=== PATIENT | female | born 1935 | race Caucasian/White ===

== ENCOUNTER 2024-12-08 11:04 | Inpatient (IN) | payer MEDICARE, OTHER, SELFPAY ==
[2024-12-08] VITALS (8 sets, daily range): BP systolic 133–178; BP diastolic 70–108; BMI 34.6
[2024-12-08 06:17] LABS: Glucose - Point of Care 93 mg/dl (70-99)
--- NOTE | 2024-12-08 06:17 | ED.CVA ---
History of Present Illness
General
Chief Complaint: CVA/TIA Symptoms
Source: patient and ambulance crew
Exam Limitations: non verbal-adult and altered mental status
Time Seen by Provider: 12/08/24 06:11
Nursing documentation reviewed up to this point in time: agreed with
Onset of Stroke Symptoms
Onset of symptoms known: Yes
Date of onset of symptoms: 12/08/24
Time of onset of symptoms: 05:15
Time pt last seen normal is known: No
History of Present Illness
History of Present Illness:
89-year-old female via EMS wake up around 515 left-sided weakness staff at her facility was called EMS was called patient developed aphasia prehospital stroke alert was called, my evaluation looks like she has expressive aphasia left-sided weakness
interestingly she is hypotensive by EMS report no blood thinners
8 AM further history from patient has a chronic neurologic condition chronic muscle weakness uses a scooter and a walker, he states she looks more tired than normal, he woke her up this morning could not move her left leg
Review of Systems
Review of Systems
Other source history: ambulance crew
All Other Systems: Not applicable
Neurological: Reports weakness
Phy Exam
Physical Exam
Physical Exam:
Physical Exam
General: ill appearing
Neck: no tongue bite
Heart: s1/s2 regular rate and rhythm, no murmur. equal radial pulses.
Lungs: no acute respiratory distress.
Abdomen: soft
Neuro: right gaze preference, left arm/leg weakness, aphasia
Skin: no rash
Psychiatric:unable to access
Extremities: no edema.
Course
Orders/Labs/Results
Orders:
Orders
12/08/24 06:11
Electrocardiogram (*1) Stat
Reason for Study: Other
Other Reason for Exam: neuro symptoms
CT HEAD STROKE ALERT W/o Cont Urgent
Comment:
Reason For Exam: cva
Bedside Glucose- Treatment ONCE
Cardiac Monitoring- Treatment ONCE
EKG- Treatment ONCE
12/08/24 06:12
CT Brain Perfusion Urgent
Comment:
Reason For Exam: cva
12/08/24 06:17
Complete Blood Count/With Diff Urgent
Comprehensive Metabolic Panel Urgent
PTT Urgent
Prothrombin Time Urgent
12/08/24 08:07
Straight cath- Treatment ONCE
CR Chest Portable - 1 View Urgent
Comment:
Reason For Exam: wealmness
Reason Study Needs to be Portable: Patient Unstable
12/08/24 08:08
CT HEAD/NECK ANG STROKE ALERT Urgent
Comment:
Reason For Exam: wekanss
NEUROLOGY CONSULT Urgent
Consulting Provider: Millie Arce
Was physician already notified: Yes
12/08/24 08:35
Urinalysis Reflex To Culture Urgent
Date Specimen was Collected: 12/08/24
Time Specimen was Collected: 08:08
Abnormal Lab Results
12/08/24
06:17
RBC 3.82 L 10^6/uL
(4.20-5.40)
Hgb 11.5 L g/dL
(12.0-16.0)
Hct 35.3 L %
(37.0-47.0)
MCHC 32.6 L g/dL
(33.0-37.0)
BUN 45 H mg/dl
(7-17)
Glucose 104 H mg/dl
(70-99)
12/08/24 06:17
12/08/24 06:17
Vital Signs
Initial and Last Documented VS:
Initial Vital Signs
Temp
98.5 F
12/08/24 06:11
Last Documented Vital Signs
Temp Pulse Resp BP Pulse Ox
98.5 F 89 16 150/70 93
12/08/24 06:11 12/08/24 08:07 12/08/24 08:07 12/08/24 08:07 12/08/24 08:07
MDM/Problems Addressed
Differential Diagnosis Includes:
cva ich seizrue with todds mass
MDM/Problems Addressed:
weakness
*Radiology
Radiology exam reviewed: preliminary read by ED provider
*Pulse Oximetry
Patient hypoxic: no
*EKG
Interpreted by ED Provider?: Yes
Interpretation: normal
Comparison EKG: no comparison EKG present
Heart Rate: 78
Rate: normal
Ischemia: no ischemia
*Audit Reviewer Interpretation
Rate: normal
Interpretation: normal
Heart Rate: 78
Rhythm: sinus
*Critical Care Note
Total Time (30-74mins, 75-104mins- exclusive of procedures): 30
Update Note
Update Note:
650a--ct report noted, Ct P pending
8:30 AM, reviewed with neurology they did recommend CT angio, have asked nurse to check straight cath UA,
ED Attending Note
-
Portions of this chart may have been created with voice recognition software.� Occasional wrong word or��sound alike� substitutions may have occurred due to the inherent limitations of voice recognition software.
Discharge Plan
Departure
Patient Disposition: Home (Routine Discharge)
Date of Disposition: 12/08/24
Time of Disposition: 08:53
Admit to: Med/Surg and Telemetry
Patient with high blood pressure during this ER visit?: No
Condition: Fair
Discharge Problem:
Stroke
Prescriptions:
No Action
pantoprazole 40 mg Tablet,Delayed Release (Dr/Ec)
40 mg PO DAILY
telmisartan 80 mg Tablet
80 mg PO DAILY
metoprolol tartrate 50 mg Tablet
50 mg PO BID
aspirin 81 mg Tablet
81 mg PO DAILY
hydrochlorothiazide 25 mg Tablet
25 mg PO DAILY
cholecalciferol (vitamin D3) [Vitamin D3] 25 mcg (1,000 unit) Capsule
25 mcg PO DAILY
ezetimibe 10 mg Tablet
10 mg PO DAILY
polyethylene glycol 3350 [HealthyLax] 17 gram Powder In Packet
17 g PO DAILY Qty: 0 0RF
albuterol sulfate 2.5 mg /3 mL (0.083 %) Solution For Nebulization
2.5 mg INHALATION R Q6HPRN PRN (Reason: sob)
cyanocobalamin (vitamin B-12) 1,000 mcg Tablet
1,000 mcg PO DAILY
acetaminophen [Tylenol Extra Strength] 500 mg Tablet
500 mg PO TIDPRN PRN (Reason: mild pain)
simethicone [Gas-X] 80 mg Tablet,Chewable
80 mg PO TIDPRN PRN (Reason: gas pains)
Referrals:
UNKNOWN - PT DOES,NOT KNOW [Family Provider] -
Interventions
Interventions:
*Risk Screen - Suicide Last Done: 12/08/24 06:11
*General Assessment Last Done: 12/08/24 06:11
*Neglect/Abuse Screening Last Done: 12/08/24 06:11
*ED- Fall Risk Assessment Last Done: 12/08/24 06:11
*ED COVID-19 Vaccine History Last Done: 12/08/24 06:52
ED- Pulmonary Assessment Last Done: 12/08/24 06:42
ED- Neurological Assessment Last Done: 12/08/24 06:14
ED- Cardiac Assessment Last Done: 12/08/24 07:10
Discharge Date and Time
Print Language: PORTUGUESE
[2024-12-08 06:35] LABS: % Basophils 0.7 % (0-2); % Eosinophils 3.9 % (0-6); % Immature Granulocytes 0.4 % (0-0.5); % Lymphocytes 27.9 % (20.5-51.1); % Monocytes 8.4 % (1.7-9.3); % Neutrophils 58.7 % (42.2-75.2); Absolute Eosinophils 0.2 10^3/uL (0-0.7); Absolute Lymphocytes 1.6 10^3/uL (1.2-3.4); Absolute Monocytes 0.5 10^3/uL (0.1-0.6); Absolute Neutrophils 3.3 10^3/uL (1.4-6.5); Hematocrit 35.3 % (37.0-47.0); Hemoglobin 11.5 g/dL (12.0-16.0); Mean Corp Hgb Conc. 32.6 g/dL (33.0-37.0); Mean Corpuscular Hgb 30.1 pg (27.0-31.0); Mean Corpuscular Volume 92.4 fL (81.0-99.0); Nucleated Red Blood Cells % 0 %; Platelet Count 177 10^3/uL (130-400); Red Blood Cell Count 3.82 10^6/uL (4.20-5.40); Red Cell Dist. Width 13.2 % (11.5-14.5); White Blood Cell Count 5.6 10^3/uL (4.8-10.8)
[2024-12-08 06:47] LABS: ALT (SGPT) 18 U/L (0-35); AST (SGOT) 31 U/L (14-36); Albumin 3.8 g/dl (3.5-5.0); Alkaline Phosphatase 89 U/L (38-126); Blood Urea Nitrogen 45 mg/dl (7-17); Calcium 9.2 mg/dl (8.4-10.2); Carbon Dioxide 27 mmol/L (22-30); Chloride 106 mmol/L (98-107); Glucose 104 mg/dl (70-99); INR 0.98; PT 13.3 Sec (11.4-14.6); Potassium 4.4 mmol/L (3.5-5.1); Sodium 143 mmol/L (135-145); Total Bilirubin 0.5 mg/dl (0.2-1.3); Total Protein 6.6 g/dl (6.3-8.2); eGFR 54.53
[2024-12-08 06:48] LABS: APTT 29.5 Sec (23.4-35.0)
[2024-12-08 09:00] LABS: Urine Albumin 1+ (Neg - Trace); Urine Bilirubin Negative (Negative); Urine Character Clear (Clear); Urine Color Yellow; Urine Glucose Negative (Negative); Urine Ketone Negative (Negative); Urine Leukocyte Negative (Negative); Urine Nitrite Negative (Negative); Urine Occult Blood Negative (Negative); Urine Urobilinogen Negative (Neg - 1+)
--- NOTE | 2024-12-08 09:26 | HPS.HSE ---
Addendum entered and electronically signed by Devaughn Bernardo DO 12/08/24 10:10:
CORRECTED PHYSICAL EXAM:
General: No Apparent Distress, Comfortable
HEENT: NormoCephalic, Moist mucous membranes, Atraumatic
Respiratory: Clear and Non Labored Respirations
Cardiac: S1/S2 and Regular Rhythm; 10/21 SEJ LSB
GI: Soft, Non Tender, Non Distended and Normal Bowel Sounds
Musculoskeletal: No Edema, mild R ankle deformity
Skin: Warm and dry
: NO Sloan
Neuro: Awake, Alert, inattentive, mild LUE and LLE weakness
Psych: Calm and cooperative
Original Note:
Family Physician
-
Family Physician: NOT KNOW UNKNOWN - PT DOES
Chief Complaint
-
Left-sided weakness and aphasia
History of Present Illness
Ms. Pettit is an 89-year-old female with a medical history of inclusion body myositis, ambulatory dysfunction (uses a scooter), left carotid endarterectomy, hypertension, and GERD who presented with left-sided weakness and expressive aphasia. Her
symptoms began upon waking around 5:15 AM. She lives at an assisted living facility and staff there noted left-sided weakness and expressive aphasia. Patient's is at bedside and reports she has not had her baseline mentation, she seems
slow to respond.
In the ED, her initial blood pressure was 150/70, heart rate 80, afebrile, and breathing comfortably and saturating appropriately on room air. Her labs were significant for a mild normocytic anemia with a hemoglobin of 11.5 which seems close to her
baseline. Urinalysis was unremarkable.
On my exam, she is slow to respond and inattentive but does eventually follow commands often after repeated prompting. She is able to move all of her extremities, although motor strength does seem slightly decreased on the left side. She is
oriented to person place and time. She has been admitted for further evaluation and management of suspected stroke.
Medical History
Past Medical History
Past Medical History: Reports Other
Additional Past Medical History:
Carotid artery disease, inclusion body myositis, hypertension, GERD
Past Surgical History: Reports Other
Additional Past Surgical History:
Carotid endarterectomy, cholecystectomy, bilateral TKA, cataract surgery
Social History
Tobacco: Former Smoker (Quit smoking approximately 58 years ago, approximately [id number] smoking history)
Alcohol: Occasional
Drug: None
Personal:
Living: Assisted Living
Family History
Family History: Not pertinent
Allergies / Home Medications
Allergies reflects when Allergies were last updated in [employer].
Home Medications with original date entered in [employer]
Allergy/Medication List:
Allergies
Allergy/AdvReac Type Severity Reaction Status Date / Time
No Known Allergies Allergy Unverified 12/08/24 06:10
Home Medications
aspirin 81 mg tablet 81 mg PO DAILY Blood Clot Prevention/Tx 05/28/23
cholecalciferol (vitamin D3) 25 mcg (1,000 unit) capsule (Vitamin D3) 25 mcg PO DAILY Supplement 05/28/23
ezetimibe 10 mg tablet 10 mg PO DAILY Triglycerides 05/28/23
hydrochlorothiazide 25 mg tablet 25 mg PO DAILY Blood Pressure 05/28/23
metoprolol tartrate 50 mg tablet 50 mg PO BID Blood Pressure 05/28/23
pantoprazole 40 mg tablet,delayed release 40 mg PO DAILY Gastrointestinal Issue 05/28/23
telmisartan 80 mg tablet 80 mg PO DAILY Blood Pressure 05/28/23
polyethylene glycol 3350 17 gram oral powder packet (HealthyLax) 17 g PO DAILY #0 ea 06/03/23
acetaminophen 500 mg tablet (Tylenol Extra Strength) 500 mg PO TIDPRN PRN mild pain 12/08/24
albuterol sulfate 2.5 mg/3 mL (0.083 %) solution for nebulization 2.5 mg inhalation R Q6HPRN PRN sob 12/08/24
cyanocobalamin (vitamin B-12) 1,000 mcg tablet 1,000 mcg PO DAILY 12/08/24
simethicone 80 mg chewable tablet 80 mg PO TIDPRN PRN gas pains 12/08/24
Review of Systems
-
History Source: Patient
A 12 point ROS was completed and negative except as noted: Yes
Neurological: Reports Weakness (Left leg weakness)
Physical Exam
Vital Signs
Vital Signs
Temp Pulse Resp BP Pulse Ox
98.5 F 89 16 150/70 93
12/08/24 06:11 12/08/24 08:07 12/08/24 08:07 12/08/24 08:07 12/08/24 08:07
Physical Exam
General: No Apparent Distress
Laboratory Results
-
12/08/24 06:17
12/08/24 06:17
Laboratory Results
PT 13.3 Sec (11.4-14.6) 12/08/24 06:17
INR 0.98 12/08/24 06:17
APTT 29.5 Sec (23.4-35.0) 12/08/24 06:17
Total Bilirubin 0.5 mg/dl (0.2-1.3) 12/08/24 06:17
AST 31 U/L (14-36) 12/08/24 06:17
ALT 18 U/L (0-35) 12/08/24 06:17
Alkaline Phosphatase 89 U/L (38-126) 12/08/24 06:17
Impression/Plan
-
General: No Apparent Distress, Comfortable and Conversant
HEENT: NormoCephalic, Moist mucous membranes, Atraumatic
Respiratory: Clear and Non Labored Respirations
Cardiac: S1/S2 and Regular Rhythm; No Rub or Gallop
GI: Soft, Non Tender, Non Distended and Normal Bowel Sounds
Musculoskeletal: No Edema, no deformity
Skin: Warm and dry
: NO Sloan
Neuro: Awake, Alert, Nonfocal/grossly intact
Psych: Calm and Intact Judgment/Insight
Ms. Pettit is an 89-year-old female with a medical history of inclusion body myositis, ambulatory dysfunction (uses a scooter), left carotid endarterectomy, hypertension, and GERD who presented with left-sided weakness and expressive aphasia. Her
symptoms began upon waking around 5:15 AM. She lives at an assisted living facility and staff there noted left-sided weakness and expressive aphasia. Patient's is at bedside and reports she has not had her baseline mentation, she seems
slow to respond.
In the ED, her initial blood pressure was 150/70, heart rate 80, afebrile, and breathing comfortably and saturating appropriately on room air. Her labs were significant for a mild normocytic anemia with a hemoglobin of 11.5 which seems close to her
baseline. Urinalysis was unremarkable.
On my exam, she is slow to respond and inattentive but does eventually follow commands often after repeated prompting. She is able to move all of her extremities, although motor strength does seem slightly decreased on the left side. She is
oriented to person place and time. She has been admitted for further evaluation and management of suspected stroke.
Suspected CVA:
- Load with aspirin and Plavix
- CT angiography of head and neck and MRI brain pending
- Permissive hypertension for the first 24 to 48 hours, IV antihypertensive agents as needed for SBP greater than 220 or DBP greater than 110
- PT/OT, [employer] T[employer]ER evaluations
- Appreciate neurology input
- Low-cholesterol diet once she has passed swallow eval
- Check TSH and fasting lipid panel
CODE STATUS: DNR, confirmed with patient and spouse
[2024-12-08 09:48] LABS: Urine Red Blood Cell 0-2 /HPF (0-2); Urine White Cell 0-2 /HPF (0-5)
--- NOTE | 2024-12-08 10:46 | CON.NEURO ---
Consultation
Order
Date of Consultation: 12/08/24
Requesting Provider: Yovani Cueva DO
Reason for Consult: Stroke alert
Prehospital notification: 6:11 AM
Neurology Consultation Note.
HPI: This is an 89-year-old LH woman who presented to [facility] on December 08, 2024 with left-sided weakness and language dysfunction that occurred at 5:15 AM upon awakening.
ER VS: 152/70, 80, afebrile
EKG: NSR, first degree of AV block. QTc Int : 456 ms
PDMP: No recently prescribed medication
Labs: Glucose�104, normal sodium, creatinine�1, platelets�177, WBCs�normal.
CT head wo contrast�no evidence of acute infarcts, mild white matter leukoaraiosis and atrophy but
CTA head/neck�no clear dynamically significant stenosis or thrombus, 1 cm L CCA aneurysm.
PMH: Inclusion body myositis, CAD, HTN, DLP, Vitamin D, B12 deficiency, GERD, ambulatory dysfunction, dysphagia(history of Botox therapy)
PSH: L CEA, cholecystectomy, bilateral TKA, cataract surgery
SH: , lives in assisted living, former smoker, ambulates with his '
All:NKDA
ROS: Positive for chronic dysphagia, proximal, left weakness, encephalopathy.
General: Well developed. In no acute distress.
Cardio: Regular rate . Extremities are without cyanosis or edema.
Neuro:
Mental Status: Alert, attends to examiner intermittently.. Follows requests intermittently. Poor attention. Expressive language deficits.
Cranial Nerves: Pupils are equally round, surgical. EOMs full. Blink to threat bilaterally. No ptosis. No nystagmus. Face symmetric. Preserved hearing. No dysarthria.
Motor: No pronator drift. Lower paraparesis, (chronic)
Sensory: Limited due to poor attention
Coordination: No tremors myoclonic movements
Gait: deferred
Assessment and Plan:
I. Acute right MCA territory stroke. Not a candidate for IV TNK or thrombectomy due to timing of symptoms onset.
II. 1 cm Left CCA aneurysm
III. H/o L CEA
IV. Inclusion body myositis
-Continue Telemetry monitoring
-Aspiration precautions
-Start DAPT
-Lipitor 40 mg QHS.
-Please check HbA1C, LDL.
-Brain MRI without niles
-Vascular surgery consult
-PT.
-DVT prophylaxis.
I personally reviewed all radiology and labs along with past medical records pertinent to current medical problems. Total time spent in patient care is 60 minutes.
Thank you for allowing us to participate in the care of this patient. We will continue to follow. Please do not hesitate to contact us with any questions or concerns.
Subjective/Objective
Subjective Data
Date of Service: December 08, 2024
Objective Data
Vital Signs
Temp Pulse Resp BP Pulse Ox
36.9 C 100 24 141/94 93
12/08/24 06:11 12/08/24 10:00 12/08/24 10:00 12/08/24 10:01 12/08/24 09:15
Lab Results
12/08/24 06:17
12/08/24 06:17
PT 13.3 Sec (11.4-14.6) 12/08/24 06:17
INR 0.98 12/08/24 06:17
APTT 29.5 Sec (23.4-35.0) 12/08/24 06:17
Sodium 143 mmol/L (135-145) 12/08/24 06:17
Potassium 4.4 mmol/L (3.5-5.1) 12/08/24 06:17
BUN 45 mg/dl (7-17) H 12/08/24 06:17
Glucose 104 mg/dl (70-99) H 12/08/24 06:17
Calcium 9.2 mg/dl (8.4-10.2) 12/08/24 06:17
Patient Allergies
No Known Allergies Allergy (Unverified 12/08/24 06:10)
Medications
-
Active Medications
Generic Name Dose Route Start Last Admin
Trade Name Freq PRN Reason Stop Dose Admin
Acetaminophen 650 mg 12/08/24 09:14
Acetaminophen 650 Mg Rectal Suppository RECTAL 01/05/25 09:13
Q4HPRN PRN
BAILEY, mild pain, or temp >100.4F
Acetaminophen 650 mg 12/08/24 09:14
Acetaminophen 325 Mg Tablet PO 01/05/25 09:13
Q4HPRN PRN
BAILEY, mild pain, or temp >100.4F
Albuterol Sulfate 2.5 mg 12/08/24 09:21
Albuterol Nebs 2.5 Mg/3 Ml Ampul INH
R Q6HPRN PRN
sob
Protocol
Aspirin 81 mg 12/09/24 08:00
Aspirin 81 Mg Chewable Tablet PO 01/06/25 07:59
DAILY BAIRON
Aspirin 325 mg 12/08/24 09:42
Aspirin 325 Mg Tablet PO 12/08/24 09:43
NOW STA
Atorvastatin Calcium 40 mg 12/08/24 18:00
Atorvastatin (Lipitor) 40 Mg Tablet PO 01/05/25 17:59
QPM BAIRON
Clopidogrel Bisulfate 75 mg 12/09/24 08:00
Clopidogrel 75 Mg Tablet PO 01/06/25 07:59
DAILY BAIRON
Clopidogrel Bisulfate 300 mg 12/08/24 09:43
Clopidogrel 300 Mg Tablet PO 12/08/24 09:44
NOW STA
Ezetimibe 10 mg 12/09/24 08:00
Ezetimibe (Zetia) 10 Mg Tablet PO 01/06/25 07:59
DAILY BAIRON
Enoxaparin Sodium 40 mg 12/08/24 18:00
Enoxaparin Sodium 40 Mg/0.4 Ml Syringe SC 01/05/25 17:59
QPM BAIRON
Hydralazine HCl 10 mg 12/08/24 09:44
Hydralazine 20 Mg/Ml Vial IV 01/05/25 09:43
Q6HPRN PRN
SBP >220 or DBP >110
Metoprolol Tartrate 50 mg 12/08/24 20:00
Metoprolol 50 Mg Regular Release Tablet PO 01/05/25 19:59
BID BAIRON
Pantoprazole Sodium 40 mg 12/09/24 08:00
Pantoprazole 40 Mg Delayed Release Tablet PO 01/06/25 07:59
DAILY BAIRON
Simethicone 80 mg 12/08/24 09:21
Simethicone 80 Mg Chewable Tablet PO 01/05/25 09:20
TIDPRN PRN
gas pains
Sodium Chloride 0 flush 12/08/24 10:00
Sodium Chloride 0.9% (Flush) Syringe IV 01/05/25 09:59
PER PROTOCOL BAIRON
Home Medications
�Medication �Instructions �Recorded
aspirin 81 mg tablet 81 mg PO DAILY Blood Clot 05/28/23
Prevention/Tx
cholecalciferol (vitamin D3) 25 25 mcg PO DAILY Supplement 05/28/23
mcg (1,000 unit) capsule (Vitamin
D3)
ezetimibe 10 mg tablet 10 mg PO DAILY Triglycerides 05/28/23
hydrochlorothiazide 25 mg tablet 25 mg PO DAILY Blood Pressure 05/28/23
metoprolol tartrate 50 mg tablet 50 mg PO BID Blood Pressure 05/28/23
pantoprazole 40 mg tablet,delayed 40 mg PO DAILY Gastrointestinal 05/28/23
release Issue
telmisartan 80 mg tablet 80 mg PO DAILY Blood Pressure 05/28/23
polyethylene glycol 3350 17 gram 17 g PO DAILY #0 ea 06/03/23
oral powder packet (HealthyLax)
acetaminophen 500 mg tablet 500 mg PO TIDPRN PRN mild pain 12/08/24
(Tylenol Extra Strength)
albuterol sulfate 2.5 mg/3 mL 2.5 mg inhalation R Q6HPRN PRN sob 12/08/24
(0.083 %) solution for nebulization
cyanocobalamin (vitamin B-12) 1,000 mcg PO DAILY 12/08/24
1,000 mcg tablet
simethicone 80 mg chewable tablet 80 mg PO TIDPRN PRN gas pains 12/08/24
Vital Signs and Labs
-
Vital Signs and Labs:
Vital Signs
Temp Pulse Resp BP Pulse Ox
36.9 C 100 24 141/94 93
12/08/24 06:11 12/08/24 10:00 12/08/24 10:00 12/08/24 10:01 12/08/24 09:15
Lab Results
12/08/24 06:17
12/08/24 06:17
PT 13.3 Sec (11.4-14.6) 12/08/24 06:17
INR 0.98 12/08/24 06:17
APTT 29.5 Sec (23.4-35.0) 12/08/24 06:17
Sodium 143 mmol/L (135-145) 12/08/24 06:17
Potassium 4.4 mmol/L (3.5-5.1) 12/08/24 06:17
BUN 45 mg/dl (7-17) H 12/08/24 06:17
Glucose 104 mg/dl (70-99) H 12/08/24 06:17
Calcium 9.2 mg/dl (8.4-10.2) 12/08/24 06:17
Medications
-
Medications:
Generic Name Dose Route Start Last Admin
Trade Name Freq PRN Reason Stop Dose Admin
Acetaminophen 650 mg 12/08/24 09:14
Acetaminophen 650 Mg Rectal Suppository RECTAL 01/05/25 09:13
Q4HPRN PRN
BAILEY, mild pain, or temp >100.4F
Acetaminophen 650 mg 12/08/24 09:14
Acetaminophen 325 Mg Tablet PO 01/05/25 09:13
Q4HPRN PRN
BAILYE, mild pain, or temp >100.4F
Albuterol Sulfate 2.5 mg 12/08/24 09:21
Albuterol Nebs 2.5 Mg/3 Ml Ampul INH
R Q6HPRN PRN
sob
Protocol
Aspirin 81 mg 12/09/24 08:00
Aspirin 81 Mg Chewable Tablet PO 01/06/25 07:59
DAILY BAIRON
Aspirin 325 mg 12/08/24 09:42
Aspirin 325 Mg Tablet PO 12/08/24 09:43
NOW STA
Atorvastatin Calcium 40 mg 12/08/24 18:00
Atorvastatin (Lipitor) 40 Mg Tablet PO 01/05/25 17:59
QPM BAIRON
Clopidogrel Bisulfate 75 mg 12/09/24 08:00
Clopidogrel 75 Mg Tablet PO 01/06/25 07:59
DAILY BAIRON
Clopidogrel Bisulfate 300 mg 12/08/24 09:43
Clopidogrel 300 Mg Tablet PO 12/08/24 09:44
NOW STA
Ezetimibe 10 mg 12/09/24 08:00
Ezetimibe (Zetia) 10 Mg Tablet PO 01/06/25 07:59
DAILY BAIRON
Enoxaparin Sodium 40 mg 12/08/24 18:00
Enoxaparin Sodium 40 Mg/0.4 Ml Syringe SC 01/05/25 17:59
QPM BAIRON
Hydralazine HCl 10 mg 12/08/24 09:44
Hydralazine 20 Mg/Ml Vial IV 01/05/25 09:43
Q6HPRN PRN
SBP >220 or DBP >110
Metoprolol Tartrate 50 mg 12/08/24 20:00
Metoprolol 50 Mg Regular Release Tablet PO 01/05/25 19:59
BID BAIRON
Pantoprazole Sodium 40 mg 12/09/24 08:00
Pantoprazole 40 Mg Delayed Release Tablet PO 01/06/25 07:59
DAILY BAIRON
Simethicone 80 mg 12/08/24 09:21
Simethicone 80 Mg Chewable Tablet PO 01/05/25 09:20
TIDPRN PRN
gas pains
Sodium Chloride 0 flush 12/08/24 10:00
Sodium Chloride 0.9% (Flush) Syringe IV 01/05/25 09:59
PER PROTOCOL BAIRON
Home Medications
-
Home Medications
aspirin 81 mg tablet 81 mg PO DAILY Blood Clot Prevention/Tx 05/28/23
cholecalciferol (vitamin D3) 25 mcg (1,000 unit) capsule (Vitamin D3) 25 mcg PO DAILY Supplement 05/28/23
ezetimibe 10 mg tablet 10 mg PO DAILY Triglycerides 05/28/23
hydrochlorothiazide 25 mg tablet 25 mg PO DAILY Blood Pressure 05/28/23
metoprolol tartrate 50 mg tablet 50 mg PO BID Blood Pressure 05/28/23
pantoprazole 40 mg tablet,delayed release 40 mg PO DAILY Gastrointestinal Issue 05/28/23
telmisartan 80 mg tablet 80 mg PO DAILY Blood Pressure 05/28/23
polyethylene glycol 3350 17 gram oral powder packet (HealthyLax) 17 g PO DAILY #0 ea 06/03/23
acetaminophen 500 mg tablet (Tylenol Extra Strength) 500 mg PO TIDPRN PRN mild pain 12/08/24
albuterol sulfate 2.5 mg/3 mL (0.083 %) solution for nebulization 2.5 mg inhalation R Q6HPRN PRN sob 12/08/24
cyanocobalamin (vitamin B-12) 1,000 mcg tablet 1,000 mcg PO DAILY 12/08/24
simethicone 80 mg chewable tablet 80 mg PO TIDPRN PRN gas pains 12/08/24
--- NOTE | 2024-12-08 11:36 | CM ---
Patient admitted from Independent living at [facility]. SPoke to in room. He reports she uses scooter for long distances and rolling walker in apt. She has rails in shower and owns shower seat but does not use it. She was independent at
home. Patient admitted for stroke. said first preference is [facility] and back up [facility].
PCP Reynaldo Aj
Pharmacy: [facility]
PLAN: SNF rehab.
--- NOTE | 2024-12-08 12:16 | PTOTSP ---
Speech Therapy Swallowing Assessment
Patient has history of pharyngeal stasis and elevated aspiration risk due to inclusion body myositis. This history coupled with new motor planning/initiation deficits, places patient at further elevated risk for aspiration and need for diet
modifications.
Recommend
1. Level 4/0 - Puree and Thin liquids
2. Supervision and assist with feeding.
3. Meds crushed in applesauce.
4. Slow rate.
5. Encourage multiple swallows and sips of liquid intermittently during meal.
6. Upright during and for at least 30 minutes after meals.
7. ST will follow and complete speech/language assessment and ensure diet tolerance and/or need for objective testing or further diet modifications.
--- NOTE | 2024-12-08 12:26 | PTCARENOTE ---
Patient arrived via stretcher from ED to [facility]. patient pulled over to bed. VSS. at bedside and PMH obtained. NIH/ Neuro done patient with mild/ severe aphasia. Patient able to tell me name,, , year and place. Patient slow to follow
commands, some of NIH/neuro screen unable to be obtained, including dysarthria and best language. MD notified and is aware.m Pureed diet ordered as cleared by speech. MRI ordered and patient resting comfortably in bed.
[2024-12-08] MEDS: PLAVIX 300 MG PO (12:51)
[2024-12-08] MEDS: ASPIRIN 325 MG PO (12:57)
[2024-12-08 13:02] LABS: TSH Reflex To Free T4 2.49 uIU/ml (0.47-4.68)
--- NOTE | 2024-12-08 14:59 | W.PN.UPDATE ---
Update Note
Progress Note Update
Discussed CT angiography findings of possible left common carotid aneurysm with vascular surgery. They felt that this most likely represented a patch from prior endarterectomy rather than an aneurysm. Also considering patient's present pathology
is related to a right cerebral event and she has no right-sided carotid pathology, there is nothing significant for the vascular team to contribute at this point in the patient's management. They are happy to follow-up with her in the outpatient
setting for ongoing management of her left carotid disease. Their input has been appreciated.
[2024-12-08] MEDS: APRESOLINE 10 MG IV (15:03)
[2024-12-08] MEDS: LOVENOX 40 MG SC (17:46)
[2024-12-08] MEDS: LIPITOR 40 MG PO (17:46)
[2024-12-08] MEDS: LOPRESSOR 50 MG PO (20:06)
[2024-12-09] VITALS (7 sets, daily range): BP systolic 94–172; BP diastolic 67–104
--- NOTE | 2024-12-09 05:26 | DOWNTIME ---
There was a [facility] [employer] Downtime on 12/09/2024 from 0200 to 12/10/2023 at 0318 . Downtime documentation of patient's care, including medication administrations, has been reconciled in the electronic record per guidelines. Refer to the
patient's paper chart under the miscellaneous tab to see printed paper medication records and downtime forms.
[2024-12-09 07:02] LABS: Ammonia < 9 umol/L (9-30)
[2024-12-09 07:47] LABS: % Basophils 0.6 % (0-2); % Eosinophils 1.5 % (0-6); % Immature Granulocytes 0.4 % (0-0.5); % Lymphocytes 23.5 % (20.5-51.1); % Monocytes 8.8 % (1.7-9.3); % Neutrophils 65.2 % (42.2-75.2); Absolute Eosinophils 0.1 10^3/uL (0-0.7); Absolute Lymphocytes 1.3 10^3/uL (1.2-3.4); Absolute Monocytes 0.5 10^3/uL (0.1-0.6); Absolute Neutrophils 3.6 10^3/uL (1.4-6.5); Hematocrit 33.6 % (37.0-47.0); Hemoglobin 10.8 g/dL (12.0-16.0); Mean Corp Hgb Conc. 32.1 g/dL (33.0-37.0); Mean Corpuscular Hgb 29.3 pg (27.0-31.0); Mean Corpuscular Volume 91.1 fL (81.0-99.0); Mean Platelet Volume 10.1 fL (7.4-10.4); Nucleated Red Blood Cells % 0 %; Platelet Count 177 10^3/uL (130-400); Red Blood Cell Count 3.69 10^6/uL (4.20-5.40); Red Cell Dist. Width 13.2 % (11.5-14.5); White Blood Cell Count 5.5 10^3/uL (4.8-10.8)
[2024-12-09 08:03] LABS: Blood Urea Nitrogen 31 mg/dl (7-17); Calcium 9.1 mg/dl (8.4-10.2); Carbon Dioxide 28 mmol/L (22-30); Chloride 106 mmol/L (98-107); Estimated Creatinine Clearance 47 ml/min; Glucose 93 mg/dl (70-99); HDL Cholesterol 62 mg/dl; LDL Cholesterol, Calculated 105 mg/dl; Potassium 4.2 mmol/L (3.5-5.1); Sodium 140 mmol/L (135-145); Total Cholesterol 188 mg/dl (50-199); Triglyceride 105 mg/dl (10-149); Very Low Density Lipoprotein 21 mg/dl (0-30); eGFR > 60.00
--- NOTE | 2024-12-09 08:14 | W.PN.NEURO.1 ---
Today's Communication / Plan
-
.
Subjective/Objective
Subjective Data
Date of Service: December 09, 2024
Neurology Follow up note
Ms. Pettit reports no complaints. She denies having headache. Continues to be dysarthria.
Brain MRI showed an acute R MCA territory infarct.
LDL-104.
PMH: Inclusion body myositis, CAD, HTN, DLP, Vitamin D, B12 deficiency, GERD, ambulatory dysfunction, dysphagia(history of Botox therapy)
PSH: L CEA, cholecystectomy, bilateral TKA, cataract surgery
SH: , lives in assisted living, former smoker, ambulates with his '
All:NKDA
ROS: Positive for chronic dysphagia, proximal, left weakness, encephalopathy.
General: Well developed. In no acute distress.
Cardio: Regular rate . Extremities are without cyanosis or edema.
Neuro:
Mental Status: Alert, oriented to name, age, locations, month, year. Poor attention. Follows simple requests. Follows requests intermittently. Poor attention. Mild dysphasia.
Cranial Nerves: Pupils are equally round, surgical. EOMs full. Blink to threat bilaterally. No ptosis. No nystagmus. Face symmetric. Preserved hearing. Mild dysarthria
Motor: Proximal arm weakness. No PD Bl LE-drifs to bed in <5 seccs.
Sensory: limited due to poor attention
Coordination: Weakness related dysmetria on the L.
Gait: deferred
Assessment and Plan:
I. 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
II. 1 cm Left CCA aneurysm
III. H/o L CEA
IV. Inclusion body myositis
-Continue Telemetry monitoring
-Aspiration precautions
-Continue ASA 81mg QD
-Lipitor 40 mg QHS.
-TTE
-PT/OT
-Vascular surgery consult
-DVT prophylaxis.
I personally reviewed all radiology and labs along with past medical records pertinent to current medical problems. Total time spent in patient care is 35 minutes.
Thank you for allowing us to participate in the care of this patient. We will continue to follow. Please do not hesitate to contact us with any questions or concerns.
Objective Data
Vital Signs
Temp Pulse Resp BP Pulse Ox
36.9 C 74 17 146/70 90
12/09/24 07:26 12/09/24 07:26 12/09/24 07:26 12/09/24 07:26 12/09/24 07:26
Lab Results
12/09/24 06:34
12/09/24 06:34
PT 13.3 Sec (11.4-14.6) 12/08/24 06:17
INR 0.98 12/08/24 06:17
APTT 29.5 Sec (23.4-35.0) 12/08/24 06:17
Sodium 140 mmol/L (135-145) 12/09/24 06:34
Potassium 4.2 mmol/L (3.5-5.1) 12/09/24 06:34
BUN 31 mg/dl (7-17) H 12/09/24 06:34
Glucose 93 mg/dl (70-99) 12/09/24 06:34
Calcium 9.1 mg/dl (8.4-10.2) 12/09/24 06:34
LDL Cholesterol, Calc 105 mg/dl 12/09/24 06:34
Patient Allergies
No Known Allergies Allergy (Unverified 12/08/24 06:10)
Vital Signs and Labs
-
Vital Signs and Labs:
Vital Signs
Temp Pulse Resp BP Pulse Ox
36.9 C 74 17 146/70 90
12/09/24 07:26 12/09/24 08:37 12/09/24 07:26 12/09/24 08:37 12/09/24 09:19
Lab Results
12/09/24 06:34
12/09/24 06:34
PT 13.3 Sec (11.4-14.6) 12/08/24 06:17
INR 0.98 12/08/24 06:17
APTT 29.5 Sec (23.4-35.0) 12/08/24 06:17
Sodium 140 mmol/L (135-145) 12/09/24 06:34
Potassium 4.2 mmol/L (3.5-5.1) 12/09/24 06:34
BUN 31 mg/dl (7-17) H 12/09/24 06:34
Glucose 93 mg/dl (70-99) 12/09/24 06:34
Calcium 9.1 mg/dl (8.4-10.2) 12/09/24 06:34
LDL Cholesterol, Calc 105 mg/dl 12/09/24 06:34
Medications
-
Medications:
Generic Name Dose Route Start Last Admin
Trade Name Freq PRN Reason Stop Dose Admin
Acetaminophen 650 mg 12/08/24 09:14
Acetaminophen 325 Mg Tablet PO 01/05/25 09:13
Q4HPRN PRN
BAILEY, mild pain, or temp >100.4F
Albuterol Sulfate 2.5 mg 12/08/24 09:21
Albuterol Nebs 2.5 Mg/3 Ml Ampul INH
R Q6HPRN PRN
sob
Protocol
Aspirin 81 mg 12/09/24 08:00 12/09/24 08:37
Aspirin 81 Mg Chewable Tablet PO 01/06/25 07:59 81 mg
DAILY BAIRON Administration
Atorvastatin Calcium 40 mg 12/08/24 18:00 12/08/24 17:46
Atorvastatin (Lipitor) 40 Mg Tablet PO 01/05/25 17:59 40 mg
QPM BAIRON Administration
Ezetimibe 10 mg 12/09/24 08:00 12/09/24 08:36
Ezetimibe (Zetia) 10 Mg Tablet PO 01/06/25 07:59 10 mg
DAILY BAIRON Administration
Enoxaparin Sodium 40 mg 12/08/24 18:00 12/08/24 17:46
Enoxaparin Sodium 40 Mg/0.4 Ml Syringe SC 01/05/25 17:59 40 mg
QPM BAIRON Administration
Hydralazine HCl 10 mg 12/08/24 09:44 12/08/24 15:03
Hydralazine 20 Mg/Ml Vial IV 01/05/25 09:43 10 mg
Q6HPRN PRN Administration
SBP >220 or DBP >110
Metoprolol Tartrate 50 mg 12/08/24 20:00 12/09/24 08:37
Metoprolol 50 Mg Regular Release Tablet PO 01/05/25 19:59 50 mg
BID BAIRON Administration
Miconazole Nitrate 0 applic 12/09/24 08:00 12/09/24 08:38
Miconazole Powder Bottle TOPICAL 01/06/25 07:59 1 applic
BID BAIRON Administration
Pantoprazole Sodium 40 mg 12/09/24 08:00 12/09/24 08:51
Pantoprazole 40 Mg Delayed Release Tablet PO 01/06/25 07:59 Not Given
DAILY BAIRON
Simethicone 80 mg 12/08/24 09:21
Simethicone 80 Mg Chewable Tablet PO 01/05/25 09:20
TIDPRN PRN
gas pains
Sodium Chloride 0 flush 12/08/24 10:00
Sodium Chloride 0.9% (Flush) Syringe IV 01/05/25 09:59
PER PROTOCOL BAIRON
Home Medications
-
Home Medications
aspirin 81 mg tablet 81 mg PO DAILY Blood Clot Prevention/Tx 05/28/23
cholecalciferol (vitamin D3) 25 mcg (1,000 unit) capsule (Vitamin D3) 25 mcg PO DAILY Supplement 05/28/23
ezetimibe 10 mg tablet 10 mg PO DAILY Triglycerides 05/28/23
hydrochlorothiazide 25 mg tablet 25 mg PO DAILY Blood Pressure 05/28/23
metoprolol tartrate 50 mg tablet 50 mg PO BID Blood Pressure 05/28/23
pantoprazole 40 mg tablet,delayed release 40 mg PO DAILY Gastrointestinal Issue 05/28/23
telmisartan 80 mg tablet 80 mg PO DAILY Blood Pressure 05/28/23
polyethylene glycol 3350 17 gram oral powder packet (HealthyLax) 17 g PO DAILY #0 ea 06/03/23
acetaminophen 500 mg tablet (Tylenol Extra Strength) 500 mg PO TIDPRN PRN mild pain 12/08/24
albuterol sulfate 2.5 mg/3 mL (0.083 %) solution for nebulization 2.5 mg inhalation R Q6HPRN PRN sob 12/08/24
cyanocobalamin (vitamin B-12) 1,000 mcg tablet 1,000 mcg PO DAILY Supplement 12/08/24
simethicone 80 mg chewable tablet 80 mg PO TIDPRN PRN gas pains 12/08/24
[2024-12-09] MEDS: ZETIA 10 MG PO (08:36)
[2024-12-09] MEDS: LOPRESSOR 50 MG PO ×2 (08:37→20:12)
[2024-12-09] MEDS: PLAVIX 75 MG PO (08:37)
[2024-12-09] MEDS: LOW STRENGTH ASPIRIN 81 MG PO (08:37)
[2024-12-09] MEDS: DESENEX/MITRAZOL/ZEASORB 1 APPLIC TOPICAL ×2 (08:38→20:12)
[2024-12-09] MEDS: PROTONIX PO (08:51)
--- NOTE | 2024-12-09 11:45 | CM ---
Patient seen at bedside with
PT rec SNF
Prefers [facility] or [facility]
Referrals placed
Spoke with K[facility] from [facility]
PLAN: SNF, pending bed availability
--- NOTE | 2024-12-09 14:24 | W.PN.HOSP.TC ---
Addendum entered and electronically signed by Devaughn Bernardo DO 12/09/24 14:55:
Neuro portion of physical exam should say 'attentive today' (not inattentive), also 'mildly dysarthric'
Original Note:
Today's Communication/Plan
-
Assessment / Plan
Assessment / Plan
General: No Apparent Distress, Comfortable
HEENT: NormoCephalic, Moist mucous membranes, Atraumatic
Respiratory: Clear and Non Labored Respirations
Cardiac: S1/S2 and Regular Rhythm; 10/21 SEJ LSB
GI: Soft, Non Tender, Non Distended and Normal Bowel Sounds
Musculoskeletal: No Edema, mild R ankle deformity
Skin: Warm and dry
: NO Sloan
Neuro: Awake, Alert, inattentive, mild LUE and LLE weakness
Psych: Calm and cooperative
Ms. Pettit is an 89-year-old female with a medical history of inclusion body myositis, ambulatory dysfunction (uses a scooter), left carotid endarterectomy, hypertension, and GERD who presented with left-sided weakness and expressive aphasia. Her
symptoms began upon waking around 5:15 AM. In the ED, her initial blood pressure was 150/70, heart rate 80, afebrile, and breathing comfortably and saturating appropriately on room air. Her labs were significant for a mild normocytic anemia with a
hemoglobin of 11.5 which seems close to her baseline. Urinalysis was unremarkable.
On my exam, she was slow to respond and inattentive but does eventually follow commands often after repeated prompting. She was able to move all of her extremities, although motor strength seemed slightly decreased on the left side. She was
oriented to person place and time. She was admitted for further evaluation and management of suspected stroke.
Acute CVA:
- MRI brain confirmed acute infarct in the right MCA distribution, specifically involving the posterior margin of the right insular cortex and subcortical white matter, posterior right temporal lobe and temporal parietal region, small acute infarct
involving the right frontal lobe new radiata white matter
- Loaded with aspirin and Plavix, continue daily
- No vascular interventions warranted after discussing with vascular surgery team
- Permissive hypertension for the next 24 hours, holding home HCTZ and telmisartan, IV antihypertensive agents as needed for SBP greater than 220 or DBP greater than 110
- PT/OT recommending SNF, UNIT TRUST MANAGER recommending pur�ed and thin with supervision
- Appreciate neurology input
-TSH and fasting lipid panel within normal limits
- Echocardiogram pending, continue telemetry monitoring
DVT prophylaxis: Lovenox
CODE STATUS: DNR, confirmed with patient and spouse
Anticipated Discharge: 24 - 48 hours
Subjective/Interval History
-
Date of Service: December 09, 2024
Patient was seen and examined at bedside this morning. Significant improvement in her mental status from yesterday. She is completely attentive although slightly dysarthric. MRI brain yesterday did confirm right hemispheric stroke.
Objective Data
-
Labs:
Laboratory Results
12/09/24
06:34
WBC 5.5
Hgb 10.8 L
Hct 33.6 L
Plt Count 177
Sodium 140
Potassium 4.2
Chloride 106
Carbon Dioxide 28
BUN 31 H
Creatinine 0.9
Glucose 93
Calcium 9.1
Vital Signs:
Vital Signs
Temp Pulse Resp BP Pulse Ox
98.2 F 81 18 94/67 97
12/09/24 11:11 12/09/24 11:11 12/09/24 11:11 12/09/24 11:11 12/09/24 11:11
I&O
12/08/24 12/09/24 12/10/24
06:59 06:59 06:59
Output Total 1440 / 1440
Balance -1440 / -1440
Review of Systems
-
History Source: Patient
All other systems: Reviewed and negative
Physical Exam
-
General: No Apparent Distress
[2024-12-09] MEDS: LIPITOR 40 MG PO (17:13)
[2024-12-09] MEDS: LOVENOX 40 MG SC (17:13)
[2024-12-10 03:41] VITALS: BP 122/54
--- NOTE | 2024-12-10 07:24 | W.PN.NEURO.1 ---
Today's Communication / Plan
-
.
Subjective/Objective
Subjective Data
Date of Service: December 10, 2024
Neurology Follow up note
Ms. Pettit continues to have expressive language difficulties. No reports of headaches, visual, motor or sensory deficits.
TTE-interatrial septum is intact with no evidence of shunting by color flow Doppler. No intracardiac mass or thrombus formation seen.
Brain MRI showed an acute R MCA territory infarct.
LDL-104.
PMH: Inclusion body myositis, CAD, HTN, DLP, Vitamin D, B12 deficiency, GERD, ambulatory dysfunction, dysphagia(history of Botox therapy)
PSH: L CEA, cholecystectomy, bilateral TKA, cataract surgery
SH: , lives in assisted living, former smoker, ambulates with his '
All:NKDA
ROS: Positive for chronic dysphagia, proximal, left weakness, encephalopathy.
General: Well developed. In no acute distress.
Cardio: Regular rate . Extremities are without cyanosis or edema.
Neuro:
Mental Status: Alert, oriented to name, age, locations, month, year. Mild to moderate expressive aphasia. Follows simple requests consistently.
Cranial Nerves: Pupils are equally round, surgical. EOMs full. Blink to threat bilaterally. No ptosis. No nystagmus. Face symmetric. Preserved hearing. Mild dysarthria
Motor: Proximal arm weakness. No PD Bl LE-drift to bed in <5 seccs.
Coordination: No dysmetria.
Gait: deferred
Assessment and Plan:
I. 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
II. 1 cm Left CCA aneurysm
III. H/o L CEA
IV. Inclusion body myositis
- Continue Telemetry monitoring
- Aspiration precautions
- Continue ASA 81mg QD. No DAPT due to the size of the stroke and NIH stroke score
- Lipitor 40 mg QHS.
- PT/OT/Speech therapy
- Vascular surgery consult
- OP Holter monitoring, cardiology evaluation
- DVT prophylaxis.
- Please recall neurology service with any questions or concerns
- Case was discussed with patient's present at bedside
I personally reviewed all radiology and labs along with past medical records pertinent to current medical problems. Total time spent in patient care is 35 minutes.
Thank you for allowing us to participate in the care of this patient. Please do not hesitate to contact us with any questions or concerns
Objective Data
Vital Signs
Temp Pulse Resp BP Pulse Ox
36.8 C 60 16 122/54 96
12/10/24 03:41 12/10/24 03:41 12/10/24 03:41 12/10/24 03:41 12/10/24 03:41
Lab Results
12/09/24 06:34
12/09/24 06:34
PT 13.3 Sec (11.4-14.6) 12/08/24 06:17
INR 0.98 12/08/24 06:17
APTT 29.5 Sec (23.4-35.0) 12/08/24 06:17
Sodium 140 mmol/L (135-145) 12/09/24 06:34
Potassium 4.2 mmol/L (3.5-5.1) 12/09/24 06:34
BUN 31 mg/dl (7-17) H 12/09/24 06:34
Glucose 93 mg/dl (70-99) 12/09/24 06:34
Calcium 9.1 mg/dl (8.4-10.2) 12/09/24 06:34
LDL Cholesterol, Calc 105 mg/dl 12/09/24 06:34
Patient Allergies
No Known Allergies Allergy (Unverified 12/08/24 06:10)
Vital Signs and Labs
-
Vital Signs and Labs:
Vital Signs
Temp Pulse Resp BP Pulse Ox
36.7 C 66 18 126/73 97
12/10/24 07:25 12/10/24 07:39 12/10/24 07:25 12/10/24 07:39 12/10/24 10:36
Lab Results
12/09/24 06:34
12/09/24 06:34
PT 13.3 Sec (11.4-14.6) 12/08/24 06:17
INR 0.98 12/08/24 06:17
APTT 29.5 Sec (23.4-35.0) 12/08/24 06:17
Sodium 140 mmol/L (135-145) 12/09/24 06:34
Potassium 4.2 mmol/L (3.5-5.1) 12/09/24 06:34
BUN 31 mg/dl (7-17) H 12/09/24 06:34
Glucose 93 mg/dl (70-99) 12/09/24 06:34
Calcium 9.1 mg/dl (8.4-10.2) 12/09/24 06:34
LDL Cholesterol, Calc 105 mg/dl 12/09/24 06:34
Medications
-
Medications:
Generic Name Dose Route Start Last Admin
Trade Name Freq PRN Reason Stop Dose Admin
Acetaminophen 650 mg 12/08/24 09:14
Acetaminophen 325 Mg Tablet PO 01/05/25 09:13
Q4HPRN PRN
BAILEY, mild pain, or temp >100.4F
Albuterol Sulfate 2.5 mg 12/08/24 09:21
Albuterol Nebs 2.5 Mg/3 Ml Ampul INH
R Q6HPRN PRN
sob
Protocol
Aspirin 81 mg 12/09/24 08:00 12/10/24 07:39
Aspirin 81 Mg Chewable Tablet PO 01/06/25 07:59 81 mg
DAILY BAIRON Administration
Atorvastatin Calcium 40 mg 12/08/24 18:00 12/09/24 17:13
Atorvastatin (Lipitor) 40 Mg Tablet PO 01/05/25 17:59 40 mg
QPM BAIRON Administration
Ezetimibe 10 mg 12/09/24 08:00 12/10/24 07:39
Ezetimibe (Zetia) 10 Mg Tablet PO 01/06/25 07:59 10 mg
DAILY BAIRON Administration
Enoxaparin Sodium 40 mg 12/08/24 18:00 12/09/24 17:13
Enoxaparin Sodium 40 Mg/0.4 Ml Syringe SC 01/05/25 17:59 40 mg
QPM BAIRON Administration
Hydralazine HCl 10 mg 12/08/24 09:44 12/08/24 15:03
Hydralazine 20 Mg/Ml Vial IV 01/05/25 09:43 10 mg
Q6HPRN PRN Administration
SBP >220 or DBP >110
Metoprolol Tartrate 50 mg 12/08/24 20:00 12/10/24 07:39
Metoprolol 50 Mg Regular Release Tablet PO 01/05/25 19:59 50 mg
BID BAIRON Administration
Miconazole Nitrate 0 applic 12/09/24 08:00 12/10/24 07:38
Miconazole Powder Bottle TOPICAL 01/06/25 07:59 1 applic
BID BAIRON Administration
Pantoprazole Sodium 40 mg 12/09/24 08:00 12/10/24 07:40
Pantoprazole 40 Mg Delayed Release Tablet PO 01/06/25 07:59 40 mg
DAILY BAIRON Administration
Simethicone 80 mg 12/08/24 09:21
Simethicone 80 Mg Chewable Tablet PO 01/05/25 09:20
TIDPRN PRN
gas pains
Sodium Chloride 0 flush 12/08/24 10:00
Sodium Chloride 0.9% (Flush) Syringe IV 01/05/25 09:59
PER PROTOCOL BAIRON
Home Medications
-
Home Medications
aspirin 81 mg tablet 81 mg PO DAILY Blood Clot Prevention/Tx 05/28/23
cholecalciferol (vitamin D3) 25 mcg (1,000 unit) capsule (Vitamin D3) 25 mcg PO DAILY Supplement 05/28/23
ezetimibe 10 mg tablet 10 mg PO DAILY Triglycerides 05/28/23
hydrochlorothiazide 25 mg tablet 25 mg PO DAILY Blood Pressure 05/28/23
metoprolol tartrate 50 mg tablet 50 mg PO BID Blood Pressure 05/28/23
pantoprazole 40 mg tablet,delayed release 40 mg PO DAILY Gastrointestinal Issue 05/28/23
telmisartan 80 mg tablet 80 mg PO DAILY Blood Pressure 05/28/23
polyethylene glycol 3350 17 gram oral powder packet (HealthyLax) 17 g PO DAILY #0 ea 06/03/23
acetaminophen 500 mg tablet (Tylenol Extra Strength) 500 mg PO TIDPRN PRN mild pain 12/08/24
albuterol sulfate 2.5 mg/3 mL (0.083 %) solution for nebulization 2.5 mg inhalation R Q6HPRN PRN sob 12/08/24
cyanocobalamin (vitamin B-12) 1,000 mcg tablet 1,000 mcg PO DAILY Supplement 12/08/24
simethicone 80 mg chewable tablet 80 mg PO TIDPRN PRN gas pains 12/08/24
[2024-12-10 07:25] VITALS: BP 126/73
[2024-12-10] MEDS: DESENEX/MITRAZOL/ZEASORB 1 APPLIC TOPICAL ×2 (07:38→20:12)
[2024-12-10] MEDS: LOPRESSOR 50 MG PO ×2 (07:39→20:12)
[2024-12-10] MEDS: ZETIA 10 MG PO (07:39)
[2024-12-10] MEDS: LOW STRENGTH ASPIRIN 81 MG PO (07:39)
[2024-12-10] MEDS: PROTONIX 40 MG PO (07:40)
--- NOTE | 2024-12-10 10:33 | CON.CAR ---
Addendum entered and electronically signed by Judd Luque MD 12/10/24 12:44:
Follow up is scheduled with Danni Leatha January 07 at 10:40
Addendum entered and electronically signed by Judd Luque MD 12/10/24 12:31:
I saw and examined the patient.
The PASSENGER RELATIONS REPRESENTATIVE's note was reviewed and I agree with the note.
Comment: 89 yo female with HTN, PAD s/p left CEA, GERD and inclusion body myositis, who presented to the ER 12/08/24 with c/o left sided weakness and aphasia. She was found to have a stroke and echo showed mod-severe .
- No concerning symptoms of severe
- We will arrange f/u with out office.
Please call with questions.
Original Note:
Consultation
Consultation Request
Date/Time Consultation Requested: 12/09/24 5:50p
Date/Time Consultation Performed: 12/10/24 9:45a
Requesting Provider: Dr. Bernardo
Performing Provider: LATRELL Correia for Dr. Luque
Reason for Consultation: moderate to severe and acute CVA
Medical History
-
Chief Complaint: left sided weakness, aphasia
History of Present Illness:
Mrs. Pettit is an 89 yo female with HTN, PAD s/p left CEA, GERD and inclusion body myositis, who presented to the ER 12/08/24 with c/o left sided weakness and aphasia. CT head was negative for acute abnormality. Brain MRI showed acute infarct in
the right MCA distribution, involving the posterior margin of the right insular cortex and subcortical white matter, posterior right temporal lobe and temporal-parietal region. Small acute infarct involving right frontal lobe new radiata white
matter, no associated mass effect. She is admitted to the hospitalist service and we are consulted because on her echo 12/09/24 she has moderate to severe (peak/mean gradients 48/27 mmHg), EF 60-65%.
Past Medical History
Past Medical History: Other (as above)
Social History
Tobacco: Non-Smoker
Alcohol: Occasional
Personal:
Living: Assisted Living ([facility] with [facility] )
Family History
Family History: Reviewed & Not Pertinent
Allergies / Home Medications
Allergy/AdvReac Type Severity Reaction Status Date / Time
No Known Allergies Allergy Unverified 12/08/24 06:10
�Medication �Instructions �Recorded �Confirmed �Type
aspirin 81 mg tablet 81 mg PO DAILY Blood Clot 05/28/23 12/08/24 History
Prevention/Tx
cholecalciferol (vitamin D3) 25 25 mcg PO DAILY Supplement 05/28/23 12/08/24 History
mcg (1,000 unit) capsule (Vitamin
D3)
ezetimibe 10 mg tablet 10 mg PO DAILY Triglycerides 05/28/23 12/08/24 History
hydrochlorothiazide 25 mg tablet 25 mg PO DAILY Blood Pressure 05/28/23 12/08/24 History
metoprolol tartrate 50 mg tablet 50 mg PO BID Blood Pressure 05/28/23 12/08/24 History
pantoprazole 40 mg tablet,delayed 40 mg PO DAILY Gastrointestinal 05/28/23 12/08/24 History
release Issue
telmisartan 80 mg tablet 80 mg PO DAILY Blood Pressure 05/28/23 12/08/24 History
polyethylene glycol 3350 17 gram 17 g PO DAILY #0 ea 06/03/23 12/08/24 Rx
oral powder packet (HealthyLax)
acetaminophen 500 mg tablet 500 mg PO TIDPRN PRN mild pain 12/08/24 12/08/24 History
(Tylenol Extra Strength)
albuterol sulfate 2.5 mg/3 mL 2.5 mg inhalation R Q6HPRN PRN sob 12/08/24 12/08/24 History
(0.083 %) solution for nebulization
cyanocobalamin (vitamin B-12) 1,000 mcg PO DAILY Supplement 12/08/24 12/08/24 History
1,000 mcg tablet
simethicone 80 mg chewable tablet 80 mg PO TIDPRN PRN gas pains 12/08/24 12/08/24 History
Review of Systems
-
History Source: Patient
All other systems: Negative unless noted
Physical Exam
Vital Signs
Temp Pulse Resp BP Pulse Ox
98.0 F 66 18 126/73 97
12/10/24 07:25 12/10/24 07:39 12/10/24 07:25 12/10/24 07:39 12/10/24 07:25
Lab Results
12/09/24 06:34
12/09/24 06:34
Physical Exam
General: Well Developed, Well Nourished and No Apparent Distress
HEENT: Normocephalic and Moist Mucous Membranes
Respiratory: Clear and Non Labored Respirations
Cardiac: S1/S2 and Regular Rhythm
Breast: Deferred by me
GI: Soft, Non Tender, Non Distended and Normal Bowel Sounds
Rectal: Deferred by Provider
Genito-urinary: Clear Urine
Musculoskeletal: No Clubbing, No Cyanosis and No Edema
Skin: Warm and Dry
Neuro: AO x 3 and Other (mild aphasia/dysarthria)
Psych: Calm
Impression / Plan
-
Aortic stenosis - moderate to severe on echo.
- peak/mean gradients 48/27 mmHg.
- asymptomatic.
- will have her follow up as an outpatient with Dr. Salvador or Dr. Mary for further possible TAVR evaluation.
CVA - Acute infarct in the right MCA distribution.
- still with mild aphasia/dysarthria.
- neurology following.
- TTE w/o vegetation.
HTN - permissive HTN post CVA.
- stable.
PAD - s/p left CEA.
GERD - stable.
Data Reviewed
-
CT Scan: Report Reviewed by me (head 12/09/24: negative for acute abn) and Other (head/neck CTA: no clear major branch vessel occlusion is identified. No clear flow-limiting stenosis is identified.)
MRI: Report Reviewed by me (brain: Acute infarct in the right MCA distribution, specifically involving the posterior margin of the right insular cortex and subcortical white matter, posterior right temporal lobe and temporal-parietal region. Small
acute infarct right frontal lobe new radiata white matter. No mass effect)
Medical Tests (Nuc Med, Echo etc): Report Reviewed by me (echo 12/09/24: EF 60-65%, mild/mod MR, mod/severe peak/mean gradients 48/27 mmHg)
Labs: Labs Reviewed by me
Old Records: Reviewed
[2024-12-10 11:07] VITALS: BP 126/59
--- NOTE | 2024-12-10 11:07 | CM ---
Addendum entered by Maryann Andujar 12/10/24 16:41:
Spoke with [facility] - has bed available tomorrow
will need COVID test - tt hospitalist
IMM explained & signed. in chart
PLAN: [facility] 12/11
Report #: [phone]
Fax #: [phone]
transportation forms on chart, facility prefer 11am transport
Original Note:
Patient seen at bedside with and dtr Carri
Left message with Koki at [facility] for bed availability
Prefer [facility]
PLAN: SNF, pending bed availability, no preauth
[2024-12-10 12:53] LABS: COVID-19 Antigen Negative (Negative)
--- NOTE | 2024-12-10 13:01 | W.PN.HOSP.TC ---
Today's Communication/Plan
-
Assessment / Plan
Assessment / Plan
General: No Apparent Distress, Comfortable
HEENT: NormoCephalic, Moist mucous membranes, Atraumatic
Respiratory: Clear and Non Labored Respirations
Cardiac: S1/S2 and Regular Rhythm; 3/6 ZHEN LSB
GI: Soft, Non Tender, Non Distended and Normal Bowel Sounds
Musculoskeletal: No Edema, adequate muscle bulk throughout
Skin: Warm and dry
: NO Sloan
Neuro: Awake, Alert, attentive, mild dysarthria and expressive aphasia
Psych: Calm and cooperative
Ms. Pettit is an 89-year-old female with a medical history of inclusion body myositis, ambulatory dysfunction (uses a scooter), left carotid endarterectomy, hypertension, and GERD who presented with left-sided weakness and expressive aphasia. Her
symptoms began upon waking around 5:15 AM. In the ED, her initial blood pressure was 150/70, heart rate 80, afebrile, and breathing comfortably and saturating appropriately on room air. Her labs were significant for a mild normocytic anemia with a
hemoglobin of 11.5 which seems close to her baseline. Urinalysis was unremarkable.
On my initial exam, she was slow to respond and inattentive but does eventually follow commands often after repeated prompting. She was able to move all of her extremities, although motor strength seemed slightly decreased on the left side. She
was oriented to person place and time. She was admitted for further evaluation and management of suspected stroke.
Acute CVA:
- MRI brain confirmed acute infarct in the right MCA distribution, specifically involving the posterior margin of the right insular cortex and subcortical white matter, posterior right temporal lobe and temporal parietal region, small acute infarct
involving the right frontal lobe new radiata white matter
- Loaded with aspirin and Plavix, continue daily
- No vascular interventions warranted after discussing with vascular surgery team
-Echocardiogram shows no intracardiac thrombus or valvular vegetations, normal systolic function, moderate to severe aortic stenosis
- Blood pressure currently within acceptable limits, will restart home antihypertensive regimen slowly to avoid cerebral hypoperfusion, will add back HCTZ 25 mg daily starting tomorrow 12/11, recommend continue holding telmisartan for now and can
restart within the next 7 days as able
- PT/OT recommending SNF, SYSTEMS ARCHITECTURE ANALYST recommending pur�ed and thin with supervision
- Appreciate neurology input
- Cardiology recommending outpatient follow-up scheduled with Danni Zhang 01/07/2025 at 10:40 AM
- Medically stable for hospital discharge, planning SNF placement tomorrow 12/11
DVT prophylaxis: Lovenox
CODE STATUS: DNR, confirmed with patient and spouse
Anticipated Discharge: Within 24 hours
Subjective/Interval History
-
Date of Service: December 10, 2024
Patient was seen and examined at bedside this morning. Continues to improve from her acute stroke. No further inpatient workup indicated. She is awaiting SNF placement.
Objective Data
-
Vital Signs:
Vital Signs
Temp Pulse Resp BP Pulse Ox
98.2 F 61 17 126/59 97
12/10/24 11:07 12/10/24 11:07 12/10/24 11:07 12/10/24 11:07 12/10/24 11:07
I&O
12/09/24 12/10/24 12/11/24
06:59 06:59 06:59
Intake Total 540 / 540
Output Total 1440 / 1440
Balance -1440 / -1440 540 / 540
Review of Systems
-
History Source: Patient
All other systems: Reviewed and negative
Physical Exam
-
General: No Apparent Distress
[2024-12-10 15:12] VITALS: BP 135/71
[2024-12-10] MEDS: LOVENOX 40 MG SC (17:57)
[2024-12-10] MEDS: LIPITOR 40 MG PO (17:58)
[2024-12-10 19:45] VITALS: BP 138/84
[2024-12-10 23:50] VITALS: BP 97/74
[2024-12-11] VITALS (7 sets, daily range): BP systolic 105–149; BP diastolic 56–98
[2024-12-11] MEDS: ZETIA 10 MG PO (08:12)
[2024-12-11] MEDS: PROTONIX 40 MG PO (08:12)
[2024-12-11] MEDS: LOW STRENGTH ASPIRIN 81 MG PO (08:12)
[2024-12-11] MEDS: DESENEX/MITRAZOL/ZEASORB 1 APPLIC TOPICAL ×2 (08:14→20:49)
[2024-12-11] MEDS: ORETIC 25 MG PO (08:27)
[2024-12-11] MEDS: LOPRESSOR PO (08:27)
--- NOTE | 2024-12-11 09:04 | CM ---
Call from [facility] liaison confirming can accept pt this AM, her # [phone].
Reviewed chart. Covid neg 12/10/24. Koki made aware.
Confirmed with team pt is for dc and transport confirmed at 11:30 AM pickup.
Called and spoke with spouse Albert who is in agreement of dc plan.
--- NOTE | 2024-12-11 10:36 | W.PN.NEURO.1 ---
Today's Communication / Plan
-
.
Subjective/Objective
Subjective Data
Date of Service: December 11, 2024.
Neurology Follow up note
Ms. Pettit reports worsening of dysphagia since yesterday. No reports of headaches, dysuria, change in vision or strength.
Review of vital signs was notable for transient hypotension down to 94/67 on 12/09/2024.
PMH: Inclusion body myositis, CAD, HTN, DLP, Vitamin D, B12 deficiency, GERD, ambulatory dysfunction, dysphagia(history of Botox therapy)
PSH: L CEA, cholecystectomy, bilateral TKA, cataract surgery
SH: , lives in assisted living, former smoker, ambulates with his '
All:NKDA
ROS: Positive for chronic dysphagia, proximal, left weakness, encephalopathy.
General: Well developed. In no acute distress.
Cardio: Regular rate . Extremities are without cyanosis or edema.
Neuro:
Mental Status: Alert, oriented to name, age, locations, month, year. Mild expressive aphasia. Follows simple requests consistently.
Cranial Nerves: Pupils are equally round, surgical. EOMs full. Visual landry intact to confrontation. No ptosis. No nystagmus. Face symmetric. Preserved hearing. Mild to moderate dysarthria
Motor: Proximal arm and leg weakness. Weakness. No PD Bl LE-drift to bed in <5 seccs.
Coordination: No dysmetria.
Gait: deferred
Assessment and Plan:
I. 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 Clinically worse.
II. 1 cm Left CCA aneurysm
III. H/o L CEA
IV. Inclusion body myositis
- Continue Telemetry monitoring
- Aspiration precautions
- Please repeat CT head without contrast to rule out hemorrhagic conversion
- Will follow
I personally reviewed all radiology and labs along with past medical records pertinent to current medical problems. Total time spent in patient care is 35 minutes.
Thank you for allowing us to participate in the care of this patient. Please do not hesitate to contact us with any questions or concerns
Objective Data
Vital Signs
Temp Pulse Resp BP Pulse Ox
36.6 C 52 16 146/68 97
12/11/24 07:00 12/11/24 08:27 12/11/24 07:00 12/11/24 08:27 12/11/24 07:00
Lab Results
12/09/24 06:34
12/09/24 06:34
PT 13.3 Sec (11.4-14.6) 12/08/24 06:17
INR 0.98 12/08/24 06:17
APTT 29.5 Sec (23.4-35.0) 12/08/24 06:17
Sodium 140 mmol/L (135-145) 12/09/24 06:34
Potassium 4.2 mmol/L (3.5-5.1) 12/09/24 06:34
BUN 31 mg/dl (7-17) H 12/09/24 06:34
Glucose 93 mg/dl (70-99) 12/09/24 06:34
Calcium 9.1 mg/dl (8.4-10.2) 12/09/24 06:34
LDL Cholesterol, Calc 105 mg/dl 12/09/24 06:34
Patient Allergies
No Known Allergies Allergy (Unverified 12/08/24 06:10)
Vital Signs and Labs
-
Vital Signs and Labs:
Vital Signs
Temp Pulse Resp BP Pulse Ox
36.6 C 52 16 146/68 97
12/11/24 07:00 12/11/24 08:27 12/11/24 07:00 12/11/24 08:27 12/11/24 07:00
Lab Results
12/09/24 06:34
12/09/24 06:34
PT 13.3 Sec (11.4-14.6) 12/08/24 06:17
INR 0.98 12/08/24 06:17
APTT 29.5 Sec (23.4-35.0) 12/08/24 06:17
Sodium 140 mmol/L (135-145) 12/09/24 06:34
Potassium 4.2 mmol/L (3.5-5.1) 12/09/24 06:34
BUN 31 mg/dl (7-17) H 12/09/24 06:34
Glucose 93 mg/dl (70-99) 12/09/24 06:34
Calcium 9.1 mg/dl (8.4-10.2) 12/09/24 06:34
LDL Cholesterol, Calc 105 mg/dl 12/09/24 06:34
Medications
-
Medications:
Generic Name Dose Route Start Last Admin
Trade Name Freq PRN Reason Stop Dose Admin
Acetaminophen 650 mg 12/08/24 09:14
Acetaminophen 325 Mg Tablet PO 01/05/25 09:13
Q4HPRN PRN
BAILEY, mild pain, or temp >100.4F
Albuterol Sulfate 2.5 mg 12/08/24 09:21
Albuterol Nebs 2.5 Mg/3 Ml Ampul INH
R Q6HPRN PRN
sob
Protocol
Aspirin 81 mg 12/09/24 08:00 12/11/24 08:12
Aspirin 81 Mg Chewable Tablet PO 01/06/25 07:59 81 mg
DAILY BAIRON Administration
Atorvastatin Calcium 40 mg 12/08/24 18:00 12/10/24 17:58
Atorvastatin (Lipitor) 40 Mg Tablet PO 01/05/25 17:59 40 mg
QPM BAIRON Administration
Ezetimibe 10 mg 12/09/24 08:00 12/11/24 08:12
Ezetimibe (Zetia) 10 Mg Tablet PO 01/06/25 07:59 10 mg
DAILY BAIRON Administration
Enoxaparin Sodium 40 mg 12/08/24 18:00 12/10/24 17:57
Enoxaparin Sodium 40 Mg/0.4 Ml Syringe SC 01/05/25 17:59 40 mg
QPM BAIRON Administration
Hydralazine HCl 10 mg 12/08/24 09:44 12/08/24 15:03
Hydralazine 20 Mg/Ml Vial IV 01/05/25 09:43 10 mg
Q6HPRN PRN Administration
SBP >220 or DBP >110
Hydrochlorothiazide 25 mg 12/11/24 08:00 12/11/24 08:27
Hydrochlorothiazide 25 Mg Tablet PO 01/08/25 07:59 25 mg
DAILY BAIRON Administration
Metoprolol Tartrate 50 mg 12/08/24 20:00 12/11/24 08:27
Metoprolol 50 Mg Regular Release Tablet PO 01/05/25 19:59 Not Given
BID BAIRON
Miconazole Nitrate 0 applic 12/09/24 08:00 12/11/24 08:14
Miconazole Powder Bottle TOPICAL 01/06/25 07:59 1 applic
BID BAIRON Administration
Pantoprazole Sodium 40 mg 12/09/24 08:00 12/11/24 08:12
Pantoprazole 40 Mg Delayed Release Tablet PO 01/06/25 07:59 40 mg
DAILY BAIRON Administration
Simethicone 80 mg 12/08/24 09:21
Simethicone 80 Mg Chewable Tablet PO 01/05/25 09:20
TIDPRN PRN
gas pains
Sodium Chloride 0 flush 12/08/24 10:00
Sodium Chloride 0.9% (Flush) Syringe IV 01/05/25 09:59
PER PROTOCOL BAIRON
Home Medications
-
Home Medications
aspirin 81 mg tablet 81 mg PO DAILY Blood Clot Prevention/Tx 05/28/23
cholecalciferol (vitamin D3) 25 mcg (1,000 unit) capsule (Vitamin D3) 25 mcg PO DAILY Supplement 05/28/23
ezetimibe 10 mg tablet 10 mg PO DAILY Triglycerides 05/28/23
hydrochlorothiazide 25 mg tablet 25 mg PO DAILY Blood Pressure 05/28/23
metoprolol tartrate 50 mg tablet 50 mg PO BID Blood Pressure 05/28/23
pantoprazole 40 mg tablet,delayed release 40 mg PO DAILY Gastrointestinal Issue 05/28/23
telmisartan 80 mg tablet 80 mg PO DAILY Blood Pressure 05/28/23
polyethylene glycol 3350 17 gram oral powder packet (HealthyLax) 17 g PO DAILY #0 ea 06/03/23
acetaminophen 500 mg tablet (Tylenol Extra Strength) 500 mg PO TIDPRN PRN mild pain 12/08/24
albuterol sulfate 2.5 mg/3 mL (0.083 %) solution for nebulization 2.5 mg inhalation R Q6HPRN PRN sob 12/08/24
cyanocobalamin (vitamin B-12) 1,000 mcg tablet 1,000 mcg PO DAILY Supplement 12/08/24
simethicone 80 mg chewable tablet 80 mg PO TIDPRN PRN gas pains 12/08/24
--- NOTE | 2024-12-11 12:56 | W.PN.HOSP.TC ---
Today's Communication/Plan
-
Assessment / Plan
Assessment / Plan
General: No acute distress, she is anxious and concerned about her worsening dysphagia
HEENT: NormoCephalic, Moist mucous membranes, Atraumatic
Respiratory: Clear and Non Labored Respirations
Cardiac: S1/S2 and Regular Rhythm; 3/6 ZHEN LSB
GI: Soft, Non Tender, Non Distended and Normal Bowel Sounds
Musculoskeletal: No Edema, adequate muscle bulk throughout
Skin: Warm and dry
: NO Sloan
Neuro: Awake, Alert, attentive, mild dysarthria and expressive aphasia, worsening dysphagia today
Psych: Anxious, cooperative
Ms. Pettit is an 89-year-old female with a medical history of inclusion body myositis, ambulatory dysfunction (uses a scooter), left carotid endarterectomy, hypertension, and GERD who presented with left-sided weakness and expressive aphasia. Her
symptoms began upon waking around 5:15 AM. In the ED, her initial blood pressure was 150/70, heart rate 80, afebrile, and breathing comfortably and saturating appropriately on room air. Her labs were significant for a mild normocytic anemia with a
hemoglobin of 11.5 which seems close to her baseline. Urinalysis was unremarkable.
On my initial exam, she was slow to respond and inattentive but does eventually follow commands often after repeated prompting. She was able to move all of her extremities, although motor strength seemed slightly decreased on the left side. She
was oriented to person place and time. She was admitted for further evaluation and management of suspected stroke.
Acute CVA:
- MRI brain confirmed acute infarct in the right MCA distribution, specifically involving the posterior margin of the right insular cortex and subcortical white matter, posterior right temporal lobe and temporal parietal region, small acute infarct
involving the right frontal lobe new radiata white matter
- Loaded with aspirin and Plavix, will continue with aspirin but Plavix has been discontinued due to size of stroke and NIH score
- No vascular interventions warranted after discussing with vascular surgery team
- Echocardiogram shows no intracardiac thrombus or valvular vegetations, normal systolic function, moderate to severe aortic stenosis
-This morning 12/11 she is experiencing worsening dysphagia with breakfast and feels that her dysarthria is worse, repeat CT brain shows evolution of prior stroke with no new infarct and no hemorrhage, will obtain repeat MRI
-Will continue to hold scheduled blood pressure medications for now, with IV agents as needed for significant hypertension (SBP greater than 220 or DBP greater than 110)
- PT/OT recommending SNF, to be reevaluated by DESIGN CHIEF due to worsening dysphagia
- Appreciate neurology input
- Cardiology recommending outpatient follow-up scheduled with Danni Leatha 01/07/2025 at 10:40 AM
- Holding discharge for now due to worsening symptoms
DVT prophylaxis: Lovenox
CODE STATUS: DNR, confirmed with patient and spouse
Anticipated Discharge: 24 - 48 hours
Subjective/Interval History
-
Date of Service: December 11, 2024
Patient was seen and examined at bedside this morning. She has worsening dysphagia. Repeating CT brain and MRI to evaluate for evolving stroke versus hemorrhagic conversion.
Objective Data
-
Vital Signs:
Vital Signs
Temp Pulse Resp BP Pulse Ox
98 F 52 16 146/68 97
12/11/24 07:00 12/11/24 08:27 12/11/24 07:00 12/11/24 08:27 12/11/24 07:00
I&O
12/10/24 12/11/24 12/12/24
06:59 06:59 06:59
Intake Total 540 / 540 780 / 780 240 / 240
Balance 540 / 540 780 / 780 240 / 240
Review of Systems
-
History Source: Patient
All other systems: Reviewed and negative
Neuro: Reports Other (Dysphagia, dysarthria)
Physical Exam
-
General: No Apparent Distress
Psych: Anxious
[2024-12-11] MEDS: LIPITOR 40 MG PO (17:01)
[2024-12-11] MEDS: LOVENOX 40 MG SC (17:01)
[2024-12-11] MEDS: LOPRESSOR 50 MG PO (20:47)
[2024-12-12] VITALS (9 sets, daily range): BP systolic 121–155; BP diastolic 66–91; PULSE 59
[2024-12-12] MEDS: LOW STRENGTH ASPIRIN 81 MG PO (08:51)
[2024-12-12] MEDS: ZETIA 10 MG PO (08:51)
[2024-12-12] MEDS: LOPRESSOR 50 MG PO ×2 (08:51→20:38)
[2024-12-12] MEDS: DESENEX/MITRAZOL/ZEASORB 1 APPLIC TOPICAL ×2 (08:51→20:43)
[2024-12-12] MEDS: PROTONIX 40 MG PO (08:51)
--- NOTE | 2024-12-12 11:47 | CM ---
Per Attending, patient not ready for discharge today; MRI pending
Koki @ [facility], [place] at [place] notified via phone
--- NOTE | 2024-12-12 13:19 | W.PN.HOSP.TC ---
Today's Communication/Plan
-
Assessment / Plan
Assessment / Plan
General: No acute distress, in better spirits today compared to yesterday
HEENT: NormoCephalic, Moist mucous membranes, Atraumatic
Respiratory: Clear and Non Labored Respirations
Cardiac: S1/S2 and Regular Rhythm; 3/6 ZHEN LSB
GI: Soft, Non Tender, Non Distended and Normal Bowel Sounds
Musculoskeletal: No Edema, adequate muscle bulk throughout
Skin: Warm and dry
: NO Sloan
Neuro: Awake, Alert, attentive, mild dysarthria and expressive aphasia, ongoing dysphagia
Psych: Calm, cooperative
Ms. Pettit is an 89-year-old female with a medical history of inclusion body myositis, ambulatory dysfunction (uses a scooter), left carotid endarterectomy, hypertension, and GERD who presented with left-sided weakness and expressive aphasia. Her
symptoms began upon waking around 5:15 AM. In the ED, her initial blood pressure was 150/70, heart rate 80, afebrile, and breathing comfortably and saturating appropriately on room air. Her labs were significant for a mild normocytic anemia with a
hemoglobin of 11.5 which seems close to her baseline. Urinalysis was unremarkable.
On my initial exam, she was slow to respond and inattentive but does eventually follow commands often after repeated prompting. She was able to move all of her extremities, although motor strength seemed slightly decreased on the left side. She
was oriented to person place and time. She was admitted for further evaluation and management of suspected stroke.
Acute CVA:
- MRI brain confirmed acute infarct in the right MCA distribution, specifically involving the posterior margin of the right insular cortex and subcortical white matter, posterior right temporal lobe and temporal parietal region, small acute infarct
involving the right frontal lobe new radiata white matter
- Loaded with aspirin and Plavix, will continue with aspirin but Plavix has been discontinued due to size of stroke and NIH score
- No vascular interventions warranted after discussing with vascular surgery team
- Echocardiogram shows no intracardiac thrombus or valvular vegetations, normal systolic function, moderate to severe aortic stenosis
- In the morning on 12/11 she experienced worsening dysphagia with breakfast and felt that her dysarthria is worse, repeat CT brain shows evolution of prior stroke with no new infarct and no hemorrhage
- Repeat MRI brain pending
- Will continue to hold scheduled blood pressure medications for now, with IV agents as needed for significant hypertension (SBP greater than 220 or DBP greater than 110)
-Reevaluated by MACHINE CLEANER who are still recommending pur�e with thin liquids and meds crushed in pur�e and 100% supervision, planning FEES Wednesday 12/13 if still inpatient at that time
- PT/OT recommending SNF
- Appreciate neurology input
- Cardiology recommending outpatient follow-up scheduled with Danni Zhang 01/07/2025 at 10:40 AM
- Holding discharge for now pending repeat MRI
DVT prophylaxis: Lovenox
CODE STATUS: DNR, confirmed with patient and spouse
Anticipated Discharge: 24 - 48 hours
Subjective/Interval History
-
Date of Service: December 12, 2024
Patient was seen and examined at bedside this morning. Dysarthria better today but still having cough with modified diet. Awaiting MRI.
Objective Data
-
Vital Signs:
Vital Signs
Temp Pulse Resp BP Pulse Ox
97.8 F 81 16 155/73 96
12/12/24 11:00 12/12/24 11:00 12/12/24 11:00 12/12/24 11:00 12/12/24 11:00
I&O
12/11/24 12/12/24 12/13/24
06:59 06:59 06:59
Intake Total 780 / 780 960 / 960
Balance 780 / 780 960 / 960
Review of Systems
-
History Source: Patient
All other systems: Reviewed and negative
Neuro: Reports Other (Dysarthria and dysphagia)
Physical Exam
-
General: No Apparent Distress
--- NOTE | 2024-12-12 16:13 | W.PN.NEURO.1 ---
Today's Communication / Plan
-
.
Subjective/Objective
Subjective Data
Date of Service: December 12, 2024
Neurology Follow up note
Ms. Pettit reports no new symptoms since yesterday. Continues to have dysphagia to solids and liquids. No reports of headaches, change in vision or strength.
Brain MRI without gadolinium (12/12/2024) showed interval increase in size and cytotoxic edema compared with December 0510/2024
PMH: Inclusion body myositis, CAD, HTN, DLP, Vitamin D, B12 deficiency, GERD, ambulatory dysfunction, dysphagia(history of Botox therapy)
PSH: L CEA, cholecystectomy, bilateral TKA, cataract surgery
SH: , lives in assisted living, former smoker, ambulates with his '
All:NKDA
ROS: Positive for chronic dysphagia, proximal, left weakness, encephalopathy.
General: Well developed. In no acute distress.
Cardio: Regular rate . Extremities are without cyanosis or edema.
Neuro:
Mental Status: Alert, oriented to name, age, locations, month, year. Mild expressive aphasia. Follows simple requests consistently.
Cranial Nerves: Pupils are equally round, surgical. EOMs full. Visual landry intact to confrontation. No ptosis. No nystagmus. Face symmetric. Preserved hearing. Mild to moderate dysarthria
Motor: Proximal arm and leg weakness. Weakness. No PD Bl LE-drift to bed in <5 seccs.
Coordination: No dysmetria.
Gait: deferred
Assessment and Plan:
I. Acute right MCA territory stroke with interval increase in size, likely due to transient hypotension with associated hypoperfusion.
II. 1 cm Left CCA aneurysm
III. H/o L CEA
IV. Inclusion body myositis
- Continue Telemetry monitoring
- Aspiration precautions
- Continue dysphagia follow-up
- Continue aspirin 81 mg once a day
- Outpatient neurology follow-up
- The case was discussed with patient's and daughter. All questions were answered
I personally reviewed all radiology and labs along with past medical records pertinent to current medical problems. Total time spent in patient care is 35 minutes.
Thank you for allowing us to participate in the care of this patient. Please do not hesitate to contact us with any questions or concerns
Objective Data
Vital Signs
Temp Pulse Resp BP Pulse Ox
36.6 C 81 16 155/73 96
12/12/24 11:00 12/12/24 11:00 12/12/24 11:00 12/12/24 11:00 12/12/24 11:00
Lab Results
12/09/24 06:34
12/09/24 06:34
PT 13.3 Sec (11.4-14.6) 12/08/24 06:17
INR 0.98 12/08/24 06:17
APTT 29.5 Sec (23.4-35.0) 12/08/24 06:17
Sodium 140 mmol/L (135-145) 12/09/24 06:34
Potassium 4.2 mmol/L (3.5-5.1) 12/09/24 06:34
BUN 31 mg/dl (7-17) H 12/09/24 06:34
Glucose 93 mg/dl (70-99) 12/09/24 06:34
Calcium 9.1 mg/dl (8.4-10.2) 12/09/24 06:34
LDL Cholesterol, Calc 105 mg/dl 12/09/24 06:34
Patient Allergies
No Known Allergies Allergy (Unverified 12/08/24 06:10)
Vital Signs and Labs
-
Vital Signs and Labs:
Vital Signs
Temp Pulse Resp BP Pulse Ox
36.6 C 81 16 155/73 96
12/12/24 11:00 12/12/24 11:00 12/12/24 11:00 12/12/24 11:00 12/12/24 11:00
Lab Results
12/09/24 06:34
12/09/24 06:34
PT 13.3 Sec (11.4-14.6) 12/08/24 06:17
INR 0.98 12/08/24 06:17
APTT 29.5 Sec (23.4-35.0) 12/08/24 06:17
Sodium 140 mmol/L (135-145) 12/09/24 06:34
Potassium 4.2 mmol/L (3.5-5.1) 12/09/24 06:34
BUN 31 mg/dl (7-17) H 12/09/24 06:34
Glucose 93 mg/dl (70-99) 12/09/24 06:34
Calcium 9.1 mg/dl (8.4-10.2) 12/09/24 06:34
LDL Cholesterol, Calc 105 mg/dl 12/09/24 06:34
Medications
-
Medications:
Generic Name Dose Route Start Last Admin
Trade Name Freq PRN Reason Stop Dose Admin
Acetaminophen 650 mg 12/08/24 09:14
Acetaminophen 325 Mg Tablet PO 01/05/25 09:13
Q4HPRN PRN
BAILEY, mild pain, or temp >100.4F
Aspirin 81 mg 12/09/24 08:00 12/12/24 08:51
Aspirin 81 Mg Chewable Tablet PO 01/06/25 07:59 81 mg
DAILY BAIRON Administration
Atorvastatin Calcium 40 mg 12/08/24 18:00 12/11/24 17:01
Atorvastatin (Lipitor) 40 Mg Tablet PO 01/05/25 17:59 40 mg
QPM BAIRON Administration
Ezetimibe 10 mg 12/09/24 08:00 12/12/24 08:51
Ezetimibe (Zetia) 10 Mg Tablet PO 01/06/25 07:59 10 mg
DAILY BAIRON Administration
Enoxaparin Sodium 40 mg 12/08/24 18:00 12/11/24 17:01
Enoxaparin Sodium 40 Mg/0.4 Ml Syringe SC 01/05/25 17:59 40 mg
QPM BAIRON Administration
Hydralazine HCl 10 mg 12/08/24 09:44 12/08/24 15:03
Hydralazine 20 Mg/Ml Vial IV 01/05/25 09:43 10 mg
Q6HPRN PRN Administration
SBP >220 or DBP >110
Hydrochlorothiazide 25 mg 12/11/24 08:00 12/11/24 08:27
Hydrochlorothiazide 25 Mg Tablet PO 01/08/25 07:59 25 mg
DAILY BAIRON Administration
Metoprolol Tartrate 50 mg 12/08/24 20:00 12/12/24 08:51
Metoprolol 50 Mg Regular Release Tablet PO 01/05/25 19:59 50 mg
BID BAIRON Administration
Miconazole Nitrate 0 applic 12/09/24 08:00 12/12/24 08:51
Miconazole Powder Bottle TOPICAL 01/06/25 07:59 1 applic
BID BAIRON Administration
Pantoprazole Sodium 40 mg 12/09/24 08:00 12/12/24 08:51
Pantoprazole 40 Mg Delayed Release Tablet PO 01/06/25 07:59 40 mg
DAILY BAIRON Administration
Simethicone 80 mg 12/08/24 09:21
Simethicone 80 Mg Chewable Tablet PO 01/05/25 09:20
TIDPRN PRN
gas pains
Sodium Chloride 0 flush 12/08/24 10:00
Sodium Chloride 0.9% (Flush) Syringe IV 01/05/25 09:59
PER PROTOCOL BAIRON
Home Medications
-
Home Medications
aspirin 81 mg tablet 81 mg PO DAILY Blood Clot Prevention/Tx 05/28/23
cholecalciferol (vitamin D3) 25 mcg (1,000 unit) capsule (Vitamin D3) 25 mcg PO DAILY Supplement 05/28/23
ezetimibe 10 mg tablet 10 mg PO DAILY Triglycerides 10/11/23
hydrochlorothiazide 25 mg tablet 25 mg PO DAILY Blood Pressure 05/28/23
metoprolol tartrate 50 mg tablet 50 mg PO BID Blood Pressure 05/28/23
pantoprazole 40 mg tablet,delayed release 40 mg PO DAILY Gastrointestinal Issue 05/28/23
telmisartan 80 mg tablet 80 mg PO DAILY Blood Pressure 05/28/23
polyethylene glycol 3350 17 gram oral powder packet (HealthyLax) 17 g PO DAILY #0 ea 06/03/23
acetaminophen 500 mg tablet (Tylenol Extra Strength) 500 mg PO TIDPRN PRN mild pain 12/08/24
albuterol sulfate 2.5 mg/3 mL (0.083 %) solution for nebulization 2.5 mg inhalation R Q6HPRN PRN sob 12/08/24
cyanocobalamin (vitamin B-12) 1,000 mcg tablet 1,000 mcg PO DAILY Supplement 12/08/24
simethicone 80 mg chewable tablet 80 mg PO TIDPRN PRN gas pains 12/08/24
--- NOTE | 2024-12-12 17:51 | PTCARENOTE ---
patient reports dysarthria improved but still coughs at times with eating. denies pain, transfers from bed to bsc/BR with supervision and rolling walker, requires assist x1 for wiping after toileting and moving up in bed. right leg/foot with
increased edema in dependent position, wears brace. vss, will continue to monitor.
[2024-12-12] MEDS: LOVENOX 40 MG SC (18:15)
[2024-12-12] MEDS: LIPITOR 40 MG PO (18:15)
[2024-12-13] VITALS (8 sets, daily range): BP systolic 106–161; BP diastolic 50–87; PULSE 68; O2SAT 100
[2024-12-13] MEDS: LOW STRENGTH ASPIRIN 81 MG PO (08:41)
[2024-12-13] MEDS: LOPRESSOR 50 MG PO ×2 (08:41→21:08)
[2024-12-13] MEDS: ZETIA 10 MG PO (08:41)
[2024-12-13] MEDS: DESENEX/MITRAZOL/ZEASORB 1 APPLIC TOPICAL ×2 (08:43→21:08)
[2024-12-13] MEDS: PROTONIX PO (08:50)
--- NOTE | 2024-12-13 11:01 | CM ---
Addendum entered by Maryann Andujar 12/13/24 15:44:
Spoke with Jaz at [facility]. Unable to accept d/t COVID
Addendum entered by Maryann Andujar 12/13/24 15:08:
Covid test + today
Called Koki at [facility] they cannot accept today since it is late in the day (needed to be there by 4).
Koki also stated they will not have bed tomorrow, and discussed CM call tomorrow am.
Original Note:
patient seen at bedside with
FEES ordered today
IMM explained & signed. In chart
Per Koki at [facility] - bed available today
COVID test needs to be ordered
PLAN: [facility]
Report #: [phone]
Fax #: [phone]
transportation forms on chart
--- NOTE | 2024-12-13 11:38 | W.PN.HOSP.TC ---
Today's Communication/Plan
-
FEES
Assessment / Plan
Assessment / Plan
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
cortex and subcortical white matter. 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 With worsening dysphagia LENDING CONSULTANT planning for FEES. Neurology recommneded ASA
A/P:
#Acute ischemic CVA
Echo with EF 60%, moderate-severe , pulmonary HTN
No arrythmia on tele
Neurology: no DAPT 2/2 size of the stroke, cont ASA, lipitor
CTA without LVO
LDL 105
TSH WNL
HgbA1c pending
MRI on 12/12/24: Interval increase in size and cytotoxic edema within the infarct, neurologist reviewed. Advised to avoid hypotension
#1cm L common carotid aneurism
not on the side of acute stroke
as per previous discussion with Vascular - no intervention recommended, outpatient referral
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
cont previous therapy
#Moderate-Severe
Cardiology as outpatient
#Acute on chronic dysphagia
dysphagia diet
LENDING CONSULTANT
#Ambulatory dysfunction
PT/OT
#mild anemia
outpatient w/u with PCP
DVT ppx Lovenox
DNR/DNI
I have spent at least 36min reviewing chart, test results, communication with consultants and providing dfirect patient care
Anticipated Discharge: Within 24 hours
Subjective/Interval History
-
Date of Service: December 13, 2024
Objective Data
-
Vital Signs:
Vital Signs
Temp Pulse Resp BP Pulse Ox
97.6 F 62 18 106/66 95
12/13/24 11:05 12/13/24 11:05 12/13/24 11:05 12/13/24 11:05 12/13/24 11:05
I&O
12/12/24 12/13/24 12/14/24
06:59 06:59 06:59
Intake Total 960 / 960 960 / 960
Balance 960 / 960 960 / 960
Review of Systems
-
History Source: Patient
All other systems: Reviewed and negative
Physical Exam
-
General: No Apparent Distress
HEENT: Normocephalic
Respiratory: Clear to Auscultation
Cardiac: Regular Rhythm
GI: Soft, Nontender and Nondistended
Neuro: Awake, Alert, Oriented and AO x 3
Psych: Calm
[2024-12-13 14:36] LABS: COVID-19 Antigen Positive (Negative)
--- NOTE | 2024-12-13 14:38 | W.PN.UPDATE ---
Update Note
Progress Note Update
Accidental positive COVID-19 without hypoxia or respiratory symptoms. No indication for Remdesivir or Paxlovid, since duration unclear and risk of side effects will overweight benefit.
[2024-12-13 14:44] LABS: Glycohemoglobin (HgbA1c) 5.3 % (4.0-5.6)
--- NOTE | 2024-12-13 14:44 | W.DCSUMMARY ---
Addendum entered and electronically signed by Jensen Garcias MD 12/14/24 12:45:
#Asymptomatic COVID-19
Discharge date: 12/14/24
Addendum entered and electronically signed by Jensen Garcias MD 12/13/24 14:47:
As per FEES diet upgraded to minced and moised
Original Note:
Discharge Summary
Discharge Data
Date of Admission: 12/08/24
Date of Discharge: 12/13/24
-
Pending Results: No
Hospital Course
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
cortex and subcortical white matter. 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 With worsening dysphagia ARTIST CONSULTANT did FEES and recommended to continue pureed diet. Neurology
recommended ASA and statin. Accidental positive COVID-19 without hypoxia or respiratory symptoms. No indication for Remdesivir or Paxlovid, since duration unclear and risk of side effects will overweight benefit. Medically stable for d/c to rehab
I have spent at least 36min reviewing chart, test results, communication with consultants and providing dfirect patient care
Patient was managed for:
#Acute ischemic CVA
#1cm L common carotid aneurism
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
#Moderate-Severe
#Acute on chronic dysphagia
#Ambulatory dysfunction
#mild anemia
Discharge Plan
-
Patient Disposition: Long-Term/SNF
Discharge Diagnosis/Procedures: Acute stroke
Diet: Other diet
Additional Diets: Pur�e diet
Activity: With assistance and As tolerated
Activity Restrictions/Additional Instructions:
Ms. Pettit is an 89-year-old female with a medical history of inclusion body myositis, ambulatory dysfunction, left carotid endarterectomy, hypertension, and GERD who presented with left-sided weakness and expressive aphasia. Her symptoms began
upon waking around 5:15 AM. In the ED, her initial blood pressure was 150/70, heart rate 80, afebrile, and breathing comfortably and saturating appropriately on room air. Her labs were significant for a mild normocytic anemia with a hemoglobin of
11.5 which seems close to her baseline. Urinalysis was unremarkable.
On initial exam, she was slow to respond and inattentive but did eventually follow commands often after repeated prompting. She was able to move all of her extremities, although motor strength was slightly decreased on the left side. She was
oriented to person place and time. She was loaded with aspirin and Plavix and admitted for further evaluation and management of suspected stroke.
MRI brain confirmed acute infarct in the right MCA distribution, specifically involving the posterior margin of the right insular cortex and subcortical white matter, posterior right temporal lobe and temporal parietal region, small acute infarct
involving the right frontal lobe new radiata white matter. She was continued on low-dose aspirin alone, Plavix was discontinued per neurology recommendations due to the size of the stroke and NIH stroke score. She made significant clinical
improvement in the first 24 hours. She was able to respond and interact appropriately, however had some residual dysarthria and expressive aphasia.
CT angiography of her head and neck showed a possible 1 cm left common carotid artery aneurysm. Considering these CT findings and her history of carotid disease, her case was discussed with the vascular surgery team. After review of her imaging,
these imaging findings were felt to be related to her prior carotid endarterectomy and actually an aneurysm. No vascular interventions were warranted.
Echocardiogram showed no intracardiac thrombus or valvular vegetations, but did show moderate to severe aortic stenosis. She was evaluated by cardiology who recommended further management in the outpatient setting for arrhythmia monitoring and
management of her aortic stenosis. She has an outpatient cardiology appointment with Danni Zhang on 01/07/2025 at 10:40 AM.
She was able to work with physical and Occupational Therapy who recommended SNF after hospital discharge. Speech and language pathology recommended a pur�ed diet with thin liquids.
Her home blood pressure medications were held for the first 48 hours for permissive hypertension in the setting of an acute stroke. She was started back on her home HCTZ 25 mg daily on 12/11. Her home telmisartan will continue to be held at time of
discharge. She will need follow-up with her primary care physician, neurology, and cardiology. Telmisartan (or an alternative appropriate agent) can be restarted as needed with caution to avoid hypotension and cerebral hypoperfusion, especially in
the first 7 days after her stroke. She was medically stable at time of hospital discharge.
Referrals:
Danni Zhang CRNP [Specified Professional Personl] -
Millie Arce MD [Active] -
Trena Aj MD [Family Provider] -
Larry Reilly MD [Active] -
Prescriptions:
New
atorvastatin 40 mg Tablet
40 mg PO QPM 30 Days Qty: 30 0RF
Continued
pantoprazole 40 mg Tablet,Delayed Release (Dr/Ec)
40 mg PO DAILY
metoprolol tartrate 50 mg Tablet
50 mg PO BID
aspirin 81 mg Tablet
81 mg PO DAILY
cholecalciferol (vitamin D3) [Vitamin D3] 25 mcg (1,000 unit) Capsule
25 mcg PO DAILY
ezetimibe 10 mg Tablet
10 mg PO DAILY
polyethylene glycol 3350 [HealthyLax] 17 gram Powder In Packet
17 g PO DAILY Qty: 0 0RF
albuterol sulfate 2.5 mg /3 mL (0.083 %) Solution For Nebulization
2.5 mg INHALATION R Q6HPRN PRN (Reason: sob)
cyanocobalamin (vitamin B-12) 1,000 mcg Tablet
1,000 mcg PO DAILY
acetaminophen [Tylenol Extra Strength] 500 mg Tablet
500 mg PO TIDPRN PRN (Reason: mild pain)
simethicone 80 mg Tablet,Chewable
80 mg PO TIDPRN PRN (Reason: gas pains)
Held
telmisartan 80 mg Tablet
80 mg PO DAILY
Hold Instructions: Hold until follow-up with PCP or cardiology for blood pressure check
Discontinued
hydrochlorothiazide 25 mg Tablet
25 mg PO DAILY
Discharge Orders:
Discharge Patient (As Directed); Ordered 12/13/24
Ordered By: Jensen Garcias
Discharge Date and Time
Print Language: LITHUANIAN
[2024-12-13] MEDS: LOVENOX 40 MG SC (17:00)
[2024-12-13] MEDS: LIPITOR 40 MG PO (17:00)
--- NOTE | 2024-12-13 18:32 | PTCARENOTE ---
Received patient from 3w into room 2128 on COVID precautions. Patient AAOx3, ringing appropriately, VSS, assist x1 to stand and pivot from wheelchair to bed. Tele in place - NSR. Patient ordered pureed diet per speech, patient with mild
slurring/garbled speech, aspiration precautions in place. NIH 1, see charting. Patient oriented to room and call ureña, states no concerns at this time.
[2024-12-13 22:43] LABS: Glucose - Point of Care 107 mg/dl (70-99)
[2024-12-14] VITALS (8 sets, daily range): BP systolic 83–124; BP diastolic 42–58
--- NOTE | 2024-12-14 08:58 | CM ---
Addendum entered by Thee Easton 12/14/24 12:39:
[facility] accepted the pt for admission today and 3:30 p.m. discharge time requested.
Both pt and her daughter Carri are aware, expressed their agreement. IMM reviewed placed on chart, pt has a copy.
[facility] nursing report: [phone]
Discharge instructions fax: [phone]
D/C plan: [facility]
Original Note:
CM following re: discharge planning.
Reviewed pt's chart, met with pt and spoke to pt's daughter Carri over the phone to discuss a detailed discharge plan.
Pt has been managing for Acute ischemic CVA.
Discharge order noted. Unfortunately no discharge plan at this moment.
CM spoke to [facility] tennis director and she confirmed they do not have a bed available.
CM discussed it with pt's daughter who stated she is a rn social services art [facility] [place]. Following plans have been requested:
Plan A: [facility]. Per daughter this is number one choice
Plan B: [facility], [facility], [facility], [facility].
A referral to above [facility] and SNFs made. Awaiting for determination.
CM will follow to assist pt with discharge to a preferred rehabilitation center.
[2024-12-14] MEDS: PROTONIX 40 MG PO (09:16)
[2024-12-14] MEDS: ZETIA 10 MG PO (09:17)
[2024-12-14] MEDS: LOW STRENGTH ASPIRIN 81 MG PO (09:17)
[2024-12-14] MEDS: DESENEX/MITRAZOL/ZEASORB 1 APPLIC TOPICAL (09:35)
[2024-12-14] MEDS: LOPRESSOR PO (09:56)
--- NOTE | 2024-12-14 11:36 | W.PN.HOSP.TC ---
Today's Communication/Plan
-
pending placement by CM
Assessment / Plan
Assessment / Plan
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
cortex and subcortical white matter. 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 Neurology recommended ASA, statin.
Accidentally found with positive COVID-19 done for placement
A/P:
#Acute ischemic CVA
Echo with EF 60%, moderate-severe , pulmonary HTN
No arrythmia on tele
Neurology: no DAPT 2/2 size of the stroke, cont ASA, lipitor
CTA without LVO
LDL 105
TSH WNL
HgbA1c pending
MRI on 12/12/24: Interval increase in size and cytotoxic edema within the infarct, neurologist reviewed. Advised to avoid hypotension
#Asymptomatic COVID-19
Paxlovid cannot be crushed and patient with dysphagia - with absent symptoms reasonable to withhold and treat symptomatically, if develop
#1cm L common carotid aneurism
not on the side of acute stroke
as per previous discussion with Vascular - no intervention recommended, outpatient referral
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
cont previous therapy
#Moderate-Severe
Cardiology as outpatient
#Acute on chronic dysphagia
dysphagia diet
AUTOMATIC VULCANIZING LEAD OPERATOR
#Ambulatory dysfunction
PT/OT
#mild anemia
outpatient w/u with PCP
DVT ppx Lovenox
DNR/DNI
I have spent at least 36min reviewing chart, test results, communication with consultants and providing dfirect patient care
Anticipated Discharge: Within 24 hours
Subjective/Interval History
-
Date of Service: December 14, 2024
Objective Data
-
Vital Signs:
Vital Signs
Temp Pulse Resp BP Pulse Ox
98.1 F 64 18 113/54 97
12/14/24 11:10 12/14/24 11:10 12/14/24 11:10 12/14/24 11:15 12/14/24 11:10
I&O
12/13/24 12/14/24 12/15/24
06:59 06:59 06:59
Intake Total 960 / 960 1680 / 1680
Balance 960 / 960 1680 / 1680
Review of Systems
-
History Source: Patient
All other systems: Reviewed and negative
Physical Exam
-
General: No Apparent Distress
HEENT: Normocephalic
Respiratory: Clear to Auscultation
Cardiac: Regular Rhythm
Neuro: Awake, Alert, Oriented and AO x 3
Psych: Calm
--- NOTE | 2024-12-14 12:00 | PTCARENOTE ---
Patient's automatic BP taken by tech this AM 93/54 RUE, repeat 83/42 RUE. HR NSR on tele monitor, patient OOB to chair stating no complaints at time of assessment by this RN. Manual BP taken by this RN on RUE 90/50; manual BP taken on LUE 110/58,
automatic BP on LUE 120/50. NIH score unchanged -1 for mild slurring of speech; neuro checks WNL - see documentation. Patient states normal sensation/movement of both arms, no obvious swelling/discoloration noted on either extremity by this RN,
palpable B/L radial pulses. MD made aware of BP results, AM PO lopressor held, no new orders at this time. Patient requesting repeat COVID swab after positive result yesterday; this RN communicated with MD, no new orders at this time per MD.
[2024-12-14 13:42] LABS: COVID-19 Antigen Negative (Negative)
--- NOTE | 2024-12-14 16:36 | PTCARENOTE ---
Patient discharged to [facility], report given by this RN to floor. IVs and tele pack removed, vitals stable prior to DC, patient dressed and belongings gathered in room with assistance of this RN and tech. Repeat COVID swab today negative; patient
maintained on isolation, [facility] made aware of test results. Patient transported to floor via staff escort and wheelchair.
== END 2024-12-14 16:15 | DRG 64 ==
LOC: 2 NORTH 11:04
PROVIDERS: ADMITTING PHYSICIAN Internal Medicine; ATTENDING PHYSICIAN Internal Medicine; CONSULT PHYSICIAN Psychiatry & Neurology Neurology; EMERGENCY PHYSICIAN Emergency Medicine; FAMILY PHYSICIAN Internal Medicine Geriatric Medicine; OTHER PHYSICIAN Internal Medicine Cardiovascular Disease
DX: I63.511 Cerebral infarction due to unspecified occlusion or stenosis of right middle cerebral artery (principal); G93.6 Cerebral edema; U07.1 COVID-19; G81.94 Hemiplegia, unspecified affecting left nondominant side; G93.40 Encephalopathy, unspecified; R47.01 Aphasia; I95.9 Hypotension, unspecified; M62.81 Muscle weakness (generalized); G72.41 Inclusion body myositis [IBM]; R26.2 Difficulty in walking, not elsewhere classified; I10 Essential (primary) hypertension; K21.9 Gastro-esophageal reflux disease without esophagitis; I25.10 Atherosclerotic heart disease of native coronary artery without angina pectoris; E53.8 Deficiency of other specified B group vitamins; I72.0 Aneurysm of carotid artery; I73.9 Peripheral vascular disease, unspecified; I27.20 Pulmonary hypertension, unspecified; E55.9 Vitamin D deficiency, unspecified; I35.0 Nonrheumatic aortic (valve) stenosis; R13.10 Dysphagia, unspecified; D64.9 Anemia, unspecified; R47.1 Dysarthria and anarthria; Z66 Do not resuscitate; Z96.653 Presence of artificial knee joint, bilateral; Z90.49 Acquired absence of other specified parts of digestive tract; Z87.891 Personal history of nicotine dependence; Z79.82 Long term (current) use of aspirin; Z86.73 Personal history of transient ischemic attack (TIA), and cerebral infarction without residual deficits
CPT/HCPCS: 0042T; 51701; 70450; 70496; 70498; 70551; 71045; 80048; 80053; 80061; 81003; 81015; 82140; 82962; 83036; 84443; 85025; 85610; 85730; 87811; 92526; 92610; 92612; 93005; 93306; 97116; 97163; 97167; 97530; 97535; 99291; Q9967

== ENCOUNTER 2025-05-14 23:53 | Emergency (ER) | payer MEDICARE, OTHER, SELFPAY ==
[2025-05-15] VITALS (7 sets, daily range): BP systolic 127–177; BP diastolic 86–117; BMI 38.4
[2025-05-15 00:45] LABS: ALT (SGPT) 11 U/L (0-35); AST (SGOT) 19 U/L (14-36); Albumin 3.3 g/dl (3.5-5.0); Alkaline Phosphatase 101 U/L (38-126); Blood Urea Nitrogen 29 mg/dl (7-17); Calcium 8.7 mg/dl (8.4-10.2); Carbon Dioxide 29 mmol/L (22-30); Chloride 106 mmol/L (98-107); Glucose 97 mg/dl (70-99); Potassium 4.8 mmol/L (3.5-5.1); Sodium 140 mmol/L (135-145); Total Protein 6.3 g/dl (6.3-8.2); eGFR > 60.00
[2025-05-15 00:47] LABS: Hematocrit 30.1 % (37.0-47.0); Hemoglobin 8.9 g/dL (12.0-16.0); Mean Corp Hgb Conc. 29.6 g/dL (33.0-37.0); Mean Corpuscular Volume 89.1 fL (81.0-99.0); Nucleated Red Blood Cells % 0 %; Platelet Count 311 10^3/uL (130-400); Red Cell Dist. Width 14.9 % (11.5-14.5)
--- NOTE | 2025-05-15 05:34 | ED.GENMED ---
ED Provider Triage
<Omi Dow MD, Resident - Last Filed: 05/15/25 05:46>
-
Patient seen by provider in Triage?: Seen in Triage
History of Present Illness
<Oim Dow MD, Resident - Last Filed: 05/15/25 05:46>
General
Chief Complaint: Vaginal Bleeding
Source: patient
Exam Limitations: none
Time Seen by Provider: 05/15/25 05:14
History of Present Illness
History of Present Illness:
89 year old female who presents for vaginal bleeding since December of this year. Initially bleeding was intermittent but as of 2 days has been constant. Has soaked through 2 pairs of underwear, and associated with clots. Was initially diagnosed with
hemorrhoids by doctor at [facility] and told to get GI appointment which she got recently. However, GI informed her bleeding is not from rectum but vagina. No abdominal pain, weight loss, fever, chest pain, urinary symtpoms, dizziness, syncope.
No use of blood thinner.
Past History
<Omi Dow MD, Resident - Last Filed: 05/15/25 05:46>
Past History
ED Past Medical History: CVA and Other (hip pain, dysphagia)
Social History
Tobacco: Former smoker
Alcohol: Occasional
Drug: None
Personal:
Living: with family
Review of Systems
<Omi Dow MD, Resident - Last Filed: 05/15/25 05:46>
Review of Systems
All Other Systems: ROS reviewed and negative except as documented in HPI and ROS
Constitutional: Denies fatigue or chills
Respiratory: Denies trouble breathing
: Reports bleeding
Neurological: Reports no symptoms
Psychiatric: Reports no symptoms
Phy Exam
<Omi Dow MD, Resident - Last Filed: 05/15/25 05:46>
General Physical Exam
General Presentation: well appearing and no apparent distress
General Skin: warm and dry
General Habitus: normal and elderly
General Mental: alert
Cardiovascular Exam
Cardiovascular Exam: regular rate/rhythm, no edema, no gallop, no JVD, no murmur and normal peripheral pulses
Gastrointestinal Exam
Gastrointestinal Exam: normal bowel sounds, non tender, soft and non distended
Genitourinary Exam Female
Exam Female: vaginal bleeding
Vaginal Exam: blood
Vaginal Bleeding: moderate
Musculoskeletal Exam
Musculoskeletal Exam: full ROM
Skin Exam
Skin Exam: normal color and warm/dry
Psychiatric Exam
Psychiatric Exam: normal mood/affect
Course
<Omi Dow MD, Resident - Last Filed: 05/15/25 05:46>
Orders/Labs/Results
Orders:
Orders
05/15/25 00:18
Type+Screen Urgent
Complete Blood Count/With Diff Urgent
05/15/25 00:21
Comprehensive Metabolic Panel Urgent
05/15/25 05:29
Transvaginal US [US Pelvis W Transvag Combined] Urgent
Comment:
Reason For Exam: vaginal bleeding
Abnormal Lab Results
05/15/25 05/15/25
00:18 00:21
RBC 3.38 L 10^6/uL
(4.20-5.40)
Hgb 8.9 L g/dL
(12.0-16.0)
Hct 30.1 L %
(37.0-47.0)
MCH 26.3 L pg
(27.0-31.0)
MCHC 29.6 L g/dL
(33.0-37.0)
RDW 14.9 H %
(11.5-14.5)
Abs Immat Gran (auto) 0.1 H 10^3/uL
(0-0.05)
Immature Gran % 0.9 H %
(0-0.5)
Lymphocytes % 16.4 L %
(20.5-51.1)
BUN 29 H mg/dl
(7-17)
Albumin 3.3 L g/dl
(3.5-5.0)
05/15/25 00:18
05/15/25 00:21
Vital Signs
Initial and Last Documented VS:
Initial Vital Signs
Temp Pulse BP Pulse Ox
97.7 F 95 169/102 98
05/15/25 00:06 05/15/25 00:06 05/15/25 00:06 05/15/25 00:06
Last Documented Vital Signs
Temp Pulse Resp BP Pulse Ox
97.7 F 95 20 147/88 95
05/15/25 00:06 05/15/25 05:00 05/15/25 05:00 05/15/25 05:00 05/15/25 05:44
<Alma Power MD - Last Filed: 05/15/25 09:51>
Orders/Labs/Results
Orders:
Orders
05/15/25 00:18
Type+Screen Urgent
Complete Blood Count/With Diff Urgent
05/15/25 00:21
Comprehensive Metabolic Panel Urgent
05/15/25 05:29
Transvaginal US [US Pelvis W Transvag Combined] Urgent
Comment:
Reason For Exam: vaginal bleeding
Abnormal Lab Results
05/15/25 05/15/25
00:18 00:21
RBC 3.38 L 10^6/uL
(4.20-5.40)
Hgb 8.9 L g/dL
(12.0-16.0)
Hct 30.1 L %
(37.0-47.0)
MCH 26.3 L pg
(27.0-31.0)
MCHC 29.6 L g/dL
(33.0-37.0)
RDW 14.9 H %
(11.5-14.5)
Abs Immat Gran (auto) 0.1 H 10^3/uL
(0-0.05)
Immature Gran % 0.9 H %
(0-0.5)
Lymphocytes % 16.4 L %
(20.5-51.1)
BUN 29 H mg/dl
(7-17)
Albumin 3.3 L g/dl
(3.5-5.0)
05/15/25 00:18
05/15/25 00:21
Vital Signs
Initial and Last Documented VS:
Initial Vital Signs
Temp Pulse BP Pulse Ox
97.7 F 95 169/102 98
05/15/25 00:06 05/15/25 00:06 05/15/25 00:06 05/15/25 00:06
Last Documented Vital Signs
Temp Pulse Resp BP Pulse Ox
97.7 F 95 20 147/88 95
05/15/25 00:06 05/15/25 05:00 05/15/25 05:00 05/15/25 05:00 05/15/25 05:44
<Omi Dow MD, Resident - Last Filed: 05/15/25 05:46>
MDM/Problems Addressed
Differential Diagnosis Includes:
endometrial cancer, endometrial hyperplasia,
<Omi Dow MD, Resident - Last Filed: 05/15/25 05:46>
*Pulse Oximetry
SaO2: 95
Oxygen Mode of Delivery: Room air
<Alma Power MD - Last Filed: 05/15/25 09:51>
*Radiology
Radiology exam reviewed: radiology read reviewed
<Alma Power MD - Last Filed: 05/15/25 09:51>
Patient Management
Social determinants of health affecting care: Living situation and Strong social support
Escalation/DeEscalation of care consider admission/obs:
Patient appears well and hemodynamically stable. Ultrasound shows thickened endometrium. I spoke extensively to the patient and her about the importance of following up with gynecology for an endometrial biopsy to rule out cancer. Patient
reports she has an appointment with urogynecology on May 25.
I then called Dr. Celis to see if she could be seen sooner in her office. She did give me names of 2 gynecologists associated with [facility] that may have more openings on her schedule.
Patient sent home with disk of ultrasound as well as ultrasound reading
ED Attending Note
<Omi Dow MD, Resident - Last Filed: 05/15/25 05:46>
-
Portions of this chart may have been created with voice recognition software.� Occasional wrong word or��sound alike� substitutions may have occurred due to the inherent limitations of voice recognition software.
Discharge Plan
Departure
Patient Disposition: Home (Routine Discharge)
Date of Disposition: 05/15/25
Time of Disposition: 09:12
Patient with high blood pressure during this ER visit?: Yes
Condition: Good
Covid-19: Not Applicable
Discharge Problem:
Abnormal vaginal bleeding in postmenopausal patient
Instructions: Bleeding after menopause, BLOOD PRESSURE
Prescriptions:
No Action
albuterol sulfate 2.5 mg /3 mL (0.083 %) Solution For Nebulization
2.5 mg INHALATION Q6H PRN (Reason: sob)
pantoprazole 40 mg Tablet,Delayed Release (Dr/Ec)
40 mg PO BID
telmisartan 80 mg Tablet
80 mg PO DAILY
metoprolol tartrate 50 mg Tablet
50 mg PO BID
simethicone [Gas-X Extra Strength] 125 mg Tablet,Chewable
125 mg PO QID PRN (Reason: gas)
allopurinol 300 mg Tablet
300 mg PO DAILY
albuterol sulfate 90 mcg/actuation Hfa Aerosol Inhaler
1 inh INHALATION Q4H PRN (Reason: sob)
ferrous gluconate 324 mg (38 mg iron) Tablet
324 mg PO MOWEFR
diclofenac sodium [Voltaren] 1 % Gel
1 ea TOPICAL DAILYPRN PRN (Reason: gout pain)
ezetimibe 10 mg tablet
10 mg PO DAILY
cyanocobalamin (vitamin B-12) 1,000 mcg Tablet
1,000 mcg PO DAILY 30 Days Qty: 30 0RF
aspirin 81 mg Tablet
81 mg PO DAILY 30 Days Qty: 30 0RF
cholecalciferol (vitamin D3) [Vitamin D3] 25 mcg (1,000 unit) Capsule
25 mcg PO DAILY 30 Days Qty: 30 0RF
Referrals:
Ban Clements MD [Active, Gynecology]
Referral Note: Call Friday to make an appointment
Trena Aj MD [Family Provider, Internal Medicine]
Bre Angeles DO [Active, Gynecology]
Referral Note: Call Friday to make an appointment
Activity Restrictions/Additional Instructions:
Please follow-up with your gynecology appointment on May 25. You will need an endometrial biopsy to make sure that you do not have cancer in the uterus.
Please show the flavoring oil filterer your ultrasound and ultrasound report, as well as your blood work.
Interventions
Interventions:
*Risk Screen - Suicide Last Done: 05/14/25 23:58
*General Assessment Last Done: 05/14/25 23:58
*Neglect/Abuse Screening Last Done: 05/15/25 04:06
*ED- Fall Risk Assessment Last Done: 05/15/25 04:06
*ED COVID-19 Vaccine History Last Done: 05/15/25 04:06
ED-Female Genitourinary Assessment Last Done: 05/15/25 04:06
Discharge Date and Time
Print Language: [place]
--- NOTE | 2025-05-15 10:13 | ED.ATTNOTE ---
ED Attending Note
ED Attending Note
Patient seen and examined by attending physician: Yes
I performed a history and physical exam of patient and discussed management with resident, I reviewed resident's note and agree with documented findings and plan of care.: Yes
ED Attending Note:
Patient appears well and comfortable. Heart sounds regular. Lungs are clear. Abdomen is soft and nontender. Patient presents with several months of abnormal vaginal bleeding. Patient reports that initially her doctor thought it was hemorrhoid
bleeding and referred her to a GI doctor. She was told by the GI doctor that her bleeding is not a GI issue. Patient was noted by resident to have vaginal bleeding when he did an exam. Patient tells me she goes through 2-3 pads per day. She
denies lightheadedness, dizziness, chest pain or shortness of breath. She is hemodynamically stable. She did drop her hemoglobin, however, only mildly. Patient reports she did make an appointment with a urogynecologist and has an appointment
May 25. I was able to give the patient to cpc that may be able to see patient sooner, as recommended by our cpc on-call, Dr. Molina
-
Portions of this chart may have been created with voice recognition software.� Occasional wrong word or��sound alike� substitutions may have occurred due to the inherent limitations of voice recognition software.
--- NOTE | 2025-05-15 10:20 | EDRN ---
Reviewed discharge instructions with patient and her . Verbalized understanding. Patient taken to car in wheelchair.
== END 2025-05-15 10:20 | disposition home or self-care (01) ==
LOC: EMR 23:53
PROVIDERS: Student in an Organized Health Care Education/Training Program; EMERGENCY PHYSICIAN Emergency Medicine; FAMILY PHYSICIAN Internal Medicine Geriatric Medicine
DX: N95.0 Postmenopausal bleeding (principal)
CPT/HCPCS: 99284; 76830; 76856; 80053; 85025; 86850; 86900; 86901